=== PATIENT | male | born 1980 | race Caucasian/White ===

== ENCOUNTER 2018-09-07 20:25 | Inpatient (IN) | payer MEDICAID ==
--- NOTE | 2018-09-07 21:09 | C.PDOC ---
History Of Present Illness 37 y/o M c PMHx asthma, sleep apnea p/w leg edema and drowsiness x weeks. Mother at bedside speaking for patient who is constantly falling asleep. She reports patient had similar presentation at [facility] [place] ago and was intubated for it. She states while they were there, leg swelling improved but they never discovered cause of leg edema and is unsure if patient has heart condition. Were told he has sleep apnea but no CPAP at home. Full HPI/ROS unobtainable due to patient's condition. Time Seen by Provider: 09/07/18 20:43 Chief Complaint (Nursing): Shortness Of Breath Past Medical History Vital Signs: Last Vital Signs Temp 97.6 F 09/07/18 20:27 Pulse 109 H 09/07/18 20:27 Resp 23 09/07/18 20:50 BP 149/81 09/07/18 20:27 Pulse Ox 94 L 09/07/18 20:50 - Medical History PMH: Asthma, HTN, Kidney Stones Family History: States: No Known Family Hx - Social History Hx Tobacco Use: No Hx Alcohol Use: Yes Hx Substance Use: Yes (marijuana) - Immunization History Hx Tetanus Toxoid Vaccination: Yes Hx Influenza Vaccination: No Hx Pneumococcal Vaccination: No Review Of Systems Review Of Systems: ROS cannot be obtained secondary to pt's inabilty to answer questions. Physical Exam - Physical Exam Additional Physical Exam Comments: gen drowsy, falling asleep constantly head nc/at eyes perrl ent mmm neck supple chest no tenderness cv tachycardic lungs cta b/l abd soft, nt back no cva tenderness skin no rash neuro somnolent extremities bilateral pitting edema ED Course And Treatment - Laboratory Results Result Diagrams: 09/07/18 21:29 09/07/18 21:29 O2 Sat by Pulse Oximetry: 94 Medical Decision Making Medical Decision Making: CXR FINDINGS: LUNGS: The lungs are well inflated and clear. There is mild pulmonary venous congestion. PLEURA: No pleural effusions or pneumothorax. CARDIOVASCULAR: Moderate cardiomegaly and prominent central vasculature. No aortic atherosclerotic calcifications present. OSSEOUS STRUCTURES: Within normal limits for the patient's age. VISUALIZED UPPER ABDOMEN: Normal. OTHER FINDINGS: None. IMPRESSION: No active pulmonary disease. Trialed on BiPap, CO2 worsening, patient becoming more somnolent. Intubated by anesthesia, see their note. Dr. Casper accepts patient to his service. Accepted to ICU. Disposition - Disposition Disposition: HOSPITALIZED Disposition Time: 22:58 Condition: CRITICAL Forms: [facility] (Swiss) - Clinical Impression Clinical Impression: Hypercapnic respiratory failure
[2018-09-07 21:20] LABS: ABG ALLEN TEST POS; ARTERIAL BLOOD GAS HCO3 27.6 mmol/L (21-28); ARTERIAL BLOOD GAS HEMOGLOBIN 14.1 g/dL (11.7-17.4); ARTERIAL BLOOD GAS O2 SAT 77.1 % (95-98); ARTERIAL BLOOD GAS PCO2 67 mm/Hg (35-45); ARTERIAL BLOOD GAS PO2 44 mm/Hg (80-100); ARTERIAL BLOOD GAS TCO2 35.1 mmol/L (22-28)
[2018-09-07 21:34] LABS: BASO # 0.1 K/uL (0.0-0.2); BASO % 0.7 % (0.0-2.0); EOS # 0.3 K/uL (0.0-0.7); EOS % 2.3 % (0.0-4.0); HEMOGLOBIN 14.1 g/dL (12.0-18.0); LYMPH % 8.4 % (20.0-40.0); MEAN CELL VOLUME 86.1 fL (80.0-94.0); MEAN CORPUSCULAR HEMOGLOBIN 27.3 pg (27.0-31.0); MEAN CORPUSCULAR HGB CONC 31.8 g/dL (33.0-37.0); MEAN PLATELET VOLUME 7.4 fL (7.2-11.7); MONO # 1.2 K/uL (0.0-0.8); NEUT # 9.4 K/uL (1.8-7.0); NEUT % 78.6 % (50.0-75.0); NRBC % 0.1 % (0.0-2.0); PLATELET COUNT 219 K/uL (130-400); RBC 5.16 Mil/uL (4.40-5.90); RED CELL DISTRIBUTION WIDTH 15.9 % (11.5-14.5); WHITE BLOOD COUNT 11.9 K/uL (4.8-10.8)
[2018-09-07 21:47] LABS: ALB/GLOB RATIO 1.2 (1.0-2.1); ALBUMIN 3.9 g/dL (3.5-5.0); ALT/SGPT 16 U/L (21-72); AST/SGOT 20 U/L (17-59); BLOOD UREA NITROGEN 12 mg/dL (9-20); CALCIUM 8.8 mg/dl (8.6-10.4); GFR NON-AFRICAN AMERICAN > 60
[2018-09-07 21:59] LABS: B-TYPE NATRIURETIC PEPTIDE 44.2 pg/mL (0-450); CK-MB 1.52 ng/mL (0.0-3.38)
--- NOTE | 2018-09-07 22:14 | RAD ---
Date of service: 09/07/2018 HISTORY: leg edema, drowsy COMPARISON: No prior. FINDINGS: LUNGS: The lungs are well inflated and clear. There is mild pulmonary venous congestion. PLEURA: No pleural effusions or pneumothorax. CARDIOVASCULAR: Moderate cardiomegaly and prominent central vasculature. No aortic atherosclerotic calcifications present. OSSEOUS STRUCTURES: Within normal limits for the patient's age. VISUALIZED UPPER ABDOMEN: Normal. OTHER FINDINGS: None. IMPRESSION: No active pulmonary disease.
[2018-09-07 22:16] LABS: EOSINOPHIL 2 % (0-4); LYMPHOCYTE 9 % (20-40); MONOCYTE 11 % (0-10); NEUTROPHIL 78 % (50-75); PLATELET ESTIMATE NORMAL (NORMAL); TOTAL CELLS COUNTED 100
[2018-09-07 22:22] LABS: ABG ALLEN TEST POS; ARTERIAL BLOOD GAS HCO3 27.5 mmol/L (21-28); ARTERIAL BLOOD GAS HEMOGLOBIN 14.7 g/dL (11.7-17.4); ARTERIAL BLOOD GAS O2 SAT 98.2 % (95-98); ARTERIAL BLOOD GAS PCO2 95 mm/Hg (35-45); ARTERIAL BLOOD GAS PH 7.18 (7.35-7.45); ARTERIAL BLOOD GAS PO2 101 mm/Hg (80-100); ARTERIAL BLOOD GAS TCO2 38.4 mmol/L (22-28)
[2018-09-07] MEDS ORDERED: Succinylcholine Chloride 20 mg/ml Syr (5 ml) IV ONE ×2 (22:40)
[2018-09-07] MEDS ORDERED: Propranolol 1 mg/mL Inj IVP ONE (22:40)
[2018-09-07] MEDS ORDERED: Propofol 10 mg/ml 1,000 MG/100 ML VIAL ONE ×2 (22:41→23:51)
[2018-09-07] MEDS ORDERED: Sodium Chloride 0.9% 1,000 ML ONE (22:42)
[2018-09-07] MEDS: Propofol 10 mg/ml 1,000 MG/100 ML VIAL IV PRN (22:43)
[2018-09-07] MEDS ORDERED: Albuterol 0.083% Inhal Sol (2.5 mg/3 mL) UD INH STA (23:17)
[2018-09-07 23:37] LABS: URINE BILIRUBIN NEGATIVE (NEGATIVE); URINE BLOOD NEGATIVE (NEGATIVE); URINE CLARITY Clear (Clear); URINE COLOR Yellow (YELLOW); URINE GLUCOSE (UA) NORMAL (Normal); URINE LEUKOCYTE ESTERASE NEG Leu/uL (Negative); URINE PROTEIN NEGATIVE (NEGATIVE)
--- NOTE | 2018-09-07 23:44 | CP.PCM.CON ---
History of Present Illness - History of Present Illness History of Present Illness: Attending: Pennie Kahn MD PMD: Messi Carr MD Reason For Consult: Critical care management Chief Complaint: SOB/Somnolence/ worsening leg edema The patient was seen and examined in the ED, already intubated with his mother present HPI: The hx is obtained from the patient's mother and after review of the Radiological, laboratory and the medical records. This is a 37 years old male with hx of Kidney stones, Asthma, Sleep Apnea not on CPAP, and was admitted to the [facility] [place] one month ago for leg edema and Somnolence and was intubated. He now comes with over one week of Somnolence, SOB and worsening bilateral leg edema. In the ED the ABG showed pH 7.10/ PCO2 95/ PO2 101 and HCO3 of 27. The patient was placed on BIPAP . Because he started to Because his Oxygen saturation began to decrease instead of increasing , the patient was intubated in the ED. PMH: Asthma, HTN, Kidney Stones PSH: Denies SH: Former smoker; Uses Marijuana; Uses Alcohol; Live with family FH: States: No Known Family Hx Allergies: NKDA Shrimp, Walnuts Medication: reviewed Review of Systems - Review of Systems Systems not reviewed;Unavailable: Respiratory Distress, Intubated Review of Systems: Review of systems is limited because the paient is intubated and sedated. - Constitutional Constitutional: Daytime Sleepiness, Sleep Apnea. absent: Fever - EENT Ears: absent: Decreased Hearing Nose/Mouth/Throat: absent: Epistaxis - Cardiovascular Cardiovascular: Dyspnea, Edema - Respiratory Respiratory: Dyspnea, Wheezing - Hematologic/Lymphatic Hematologic: absent: Easy Bleeding, Easy Bruising Past Patient History - Past Medical History & Family History Past Medical History?: Yes - Past Social History Smoking Status: Former Smoker Chewing Tobacco Use: No Cigar Use: No Alcohol: Occasional Drugs: Cannabis, Inhalants Home Situation {Lives}: With Family - CARDIAC Hx Hypertension: Yes - PULMONARY Hx Asthma: Yes Hx Sleep Apnea: Yes - NEUROLOGICAL Hx Neurological Disorder: No - HEENT Hx HEENT Problems: No - RENAL Hx Kidney Stones: Yes - ENDOCRINE/METABOLIC Hx Endocrine Disorders: No - HEMATOLOGICAL/ONCOLOGICAL Hx Blood Disorders: No - INTEGUMENTARY Hx Dermatological Problems: No - MUSCULOSKELETAL/RHEUMATOLOGICAL Hx Musculoskeletal Disorders: No - GASTROINTESTINAL Hx Gastrointestinal Disorders: No - GENITOURINARY/GYNECOLOGICAL Hx Genitourinary Disorders: No - PSYCHIATRIC Hx Psychophysiologic Disorder: No Hx Substance Use: Yes (marijuana) - SURGICAL HISTORY Hx Surgeries: No - ANESTHESIA Hx Anesthesia: No Meds Allergies/Adverse Reactions: Allergies Allergy/AdvReac Type Severity Reaction Status Date / Time shrimp Allergy RASH Verified 09/07/18 20:37 walnuts Allergy RASH Uncoded 09/07/18 20:37 - Medications Medications: Current Medications Albuterol Sulfate (Albuterol 0.083% Inhal Grace (2.5 Mg/3 Ml) Ud) 2.5 mg INH RQ4 ANGELA Enoxaparin Sodium (Lovenox) 40 mg SC DAILY ANGELA Furosemide (Lasix) 40 mg IVP BID ANGELA Propofol (Diprivan) 1,000 mg in 100 mls @ 4.286 mls/hr IV .[id number] PRN; Protocol PRN Reason: TITRATE PER MD ORDER Methylprednisolone (Solu-Medrol) 40 mg IVP Q8H ANGELA Physical Exam - Constitutional Appears: In Acute Distress - Head Exam Head Exam: ATRAUMATIC, NORMAL INSPECTION, NORMOCEPHALIC - Eye Exam Eye Exam: Normal appearance Pupil Exam: NORMAL ACCOMODATION, PERRL - ENT Exam ENT Exam: Mucous Membranes Moist, Normal Exam - Neck Exam Neck exam: Positive for: Full Rom. Negative for: Lymphadenopathy, Meningismus - Respiratory Exam Additional comments: Inspiratory and expiratory wheezes - Cardiovascular Exam Cardiovascular Exam: REGULAR RHYTHM, RRR, +S1, +S2 - GI/Abdominal Exam Additional comments: Distended, tense, dull on percussion, Rebound tenderness cannot be explored as the patient is sedated. - Rectal Exam Rectal Exam: Deferred - Extremities Exam Additional comments: Bilateral firm, non pitting lef edema. - Back Exam Back exam: NORMAL INSPECTION - Neurological Exam Additional comments: Intubated, sedated. Prior to intubation there was no apparent focal weakness. - Psychiatric Exam Additional comments: Intubated and sedated - Skin Skin Exam: Intact, Normal Color, Warm Results - Vital Signs Recent Vital Signs: Last Vital Signs Temp 97.6 F 09/07/18 20:27 Pulse 104 H 09/07/18 23:15 Resp 24 09/07/18 23:15 BP 121/70 09/07/18 23:15 Pulse Ox 93 L 09/07/18 23:15 - Labs Result Diagrams: 09/08/18 02:33 09/08/18 02:33 Labs: Laboratory Results - last 24 hr 09/07/18 09/07/18 09/07/18 20:15 21:15 21:29 WBC 11.9 H RBC 5.16 Hgb 14.1 Hct 44.4 MCV 86.1 MCH 27.3 MCHC 31.8 L RDW 15.9 H Plt Count 219 MPV 7.4 Neut % (Auto) 78.6 H Lymph % (Auto) 8.4 L Valley % (Auto) 10.0 Eos % (Auto) 2.3 Baso % (Auto) 0.7 Neut # (Auto) 9.4 H Lymph # (Auto) 1.0 Valley # (Auto) 1.2 H Eos # (Auto) 0.3 Baso # (Auto) 0.1 Neutrophils % (Manual) 78 H Lymphocytes % (Manual) 9 L Monocytes % (Manual) 11 H Eosinophils % (Manual) 2 Platelet Estimate Normal Puncture Site Rra Rra pCO2 95 H* 67 H pO2 101 H 44 L* HCO3 27.5 27.6 ABG pH 7.18 L* 7.30 L ABG Total CO2 38.4 H 35.1 H ABG O2 Saturation 98.2 H 77.1 L ABG Base Excess 3.5 H 4.3 H ABG Hemoglobin 14.7 14.1 ABG Carboxyhemoglobin 3.5 H 3.6 H POC ABG HHb (Measured) 1.7 21.8 H ABG Methemoglobin 1.2 1.3 Edward Test Pos Pos A-a O2 Difference 137.0 86.0 Respiratory Index 1.4 2.0 Hgb O2 Saturation 93.6 L 73.3 L Liter Flow 2.5 Vent Mode Bipap FiO2 50.0 30.0 Inspiratory BiPAP 20 Expiratory BiPAP 10 Crit Value Called To Felecia hawkins Crit Value Called By Thomas franklin market maker Keith sanidad Crit Value Read Back Y Y Blood Gas Notified Time 2221 2118 Sodium Potassium Chloride Carbon Dioxide Anion Gap BUN Creatinine Est GFR ( Amer) Est GFR (Non-Af Amer) Random Glucose Calcium Phosphorus Magnesium Total Bilirubin AST ALT Alkaline Phosphatase Total Creatine Kinase CK-MB (Mass) Troponin I NT-Pro-B Natriuret Pep Total Protein Albumin Globulin Albumin/Globulin Ratio Urine Color Urine Clarity Urine pH Ur Specific Fate Urine Protein Urine Glucose (UA) Urine Ketones Urine Blood Urine Nitrate Urine Bilirubin Urine Urobilinogen Ur Leukocyte Esterase Urine WBC (Auto) Urine RBC (Auto) 09/07/18 09/07/18 21:29 23:29 WBC RBC Hgb Hct MCV MCH MCHC RDW Plt Count MPV Neut % (Auto) Lymph % (Auto) Valley % (Auto) Eos % (Auto) Baso % (Auto) Neut # (Auto) Lymph # (Auto) Valley # (Auto) Eos # (Auto) Baso # (Auto) Neutrophils % (Manual) Lymphocytes % (Manual) Monocytes % (Manual) Eosinophils % (Manual) Platelet Estimate Puncture Site pCO2 pO2 HCO3 ABG pH ABG Total CO2 ABG O2 Saturation ABG Base Excess ABG Hemoglobin ABG Carboxyhemoglobin POC ABG HHb (Measured) ABG Methemoglobin Edward Test A-a O2 Difference Respiratory Index Hgb O2 Saturation Liter Flow Vent Mode FiO2 Inspiratory BiPAP Expiratory BiPAP Crit Value Called To Crit Value Called By Crit Value Read Back Blood Gas Notified Time Sodium 139 Potassium 4.0 Chloride 101 Carbon Dioxide 33 H Anion Gap 9 L BUN 12 Creatinine 0.8 Est GFR ( Amer) > 60 Est GFR (Non-Af Amer) > 60 Random Glucose 134 H D Calcium 8.8 Phosphorus 3.4 Magnesium 2.0 Total Bilirubin 0.3 AST 20 ALT 16 L D Alkaline Phosphatase 66 Total Creatine Kinase 129 CK-MB (Mass) 1.52 Troponin I < 0.0120 NT-Pro-B Natriuret Pep 44.2 Total Protein 7.1 Albumin 3.9 Globulin 3.2 Albumin/Globulin Ratio 1.2 Urine Color Yellow Urine Clarity Clear Urine pH 5.0 Ur Specific Fate 1.027 Urine Protein Negative Urine Glucose (UA) Normal Urine Ketones Negative Urine Blood Negative Urine Nitrate Negative Urine Bilirubin Negative Urine Urobilinogen 2.0 Ur Leukocyte Esterase Neg Urine WBC (Auto) 2 Urine RBC (Auto) 1 - Impressions Impression: NSR 98/min. No sign of ischemia - Imaging and Cardiology Chest x-ray Status: Image reviewed by me Additional comment: Initial Chest X Ray: Poor inspiration with Bibasal haziness Post Intubation Chest X Ray: ET tube above juan luis Bilateral interstitial infiltrate Assessment & Plan - Assessment and Plan (Free Text) Assessment: #. Hypercapnic, Hypoxic respiratory failure #. Sleep apnea #. Bilateral leg edema Plan: 37 years old male with hx of Kidney stones, Asthma, Sleep Apnea not on CPAP, comes with over one week of Somnolence, SOB and worsening bilateral leg edema. In the ED the ABG showed pH 7.10/ PCO2 95/ PO2 101 and HCO3 of 27. He was intubated in the ED. #. Hypercapnic, Hypoxic respiratory failure caused by Asthma, Sleep apnea and most likely a flash pulmonary edema. - The patient was intubated in ED with vent settings AC 20; Tidal Volume 500; PEEP of 10 and FiO2 of 100% - Lasix total of 80mg IV given and continue with lasix 40mg IV Q12 - Methyl prednisolone - Albuterol - Serial Troponin to r/o ACS - Serial EKG - Follow official X Ray Interpretation - Follow Urine drug screen - Blood culture because of the leukocytosis #. Sleep apnea - On extubation , the patient will have to be on CPAP at nights #. Bilateral leg edema with normal renal function and urinalysis. The Pro BNP is normal. This is a patient with Asthma, Sleep Apnea, Probably pulmonary hypertension and right heart failure. The patient will be given lasix and an ECHO cardiogram will be ordered to evaluate for cardiac failure and pulmonary pressure. - Follow D Dimer - Follow Duplex US of lower extremities #. DVT Prophylaxis with SCD and Lovenox #. Code Status: Full James Lombardi MD - - Date & Time Date: 09/07/18 Time: 23:44
[2018-09-07] MEDS ORDERED: Albuterol 0.083% Inhal Sol (2.5 mg/3 mL) UD ONE (23:46)
[2018-09-08] MEDS ORDERED: Albuterol 0.083% Inhal Sol (2.5 mg/3 mL) UD ONE (00:10)
[2018-09-08 00:49] LABS: ABG ALLEN TEST POS; ARTERIAL BLOOD GAS HCO3 27.2 mmol/L (21-28); ARTERIAL BLOOD GAS HEMOGLOBIN 13.7 g/dL (11.7-17.4); ARTERIAL BLOOD GAS O2 SAT 96.2 % (95-98); ARTERIAL BLOOD GAS PCO2 58 mm/Hg (35-45); ARTERIAL BLOOD GAS PH 7.33 (7.35-7.45); ARTERIAL BLOOD GAS PO2 66 mm/Hg (80-100); ARTERIAL BLOOD GAS TCO2 32.4 mmol/L (22-28)
[2018-09-08 01:04] LABS: INR 1.2; PROTHROMBIN TIME 12.8 SECONDS (9.7-12.2)
[2018-09-08 01:32] LABS: BARBITURATES, UR NEGATIVE (NEGATIVE); BENZODIAZEPINES, UR NEGATIVE (NEGATIVE); OPIATES, UR NEGATIVE (NEGATIVE); PHENCYCLIDINE, UR NEGATIVE (NEGATIVE)
[2018-09-08] MEDS: Propofol 10 mg/ml 1,000 MG/100 ML VIAL IV PRN ×8 (02:00→22:20)
[2018-09-08 02:38] LABS: BASO # 0.1 K/uL (0.0-0.2); BASO % 0.6 % (0.0-2.0); EOS # 0.1 K/uL (0.0-0.7); EOS % 0.6 % (0.0-4.0); HEMOGLOBIN 14.4 g/dL (12.0-18.0); LYMPH # 0.4 K/uL (1.0-4.3); LYMPH % 3.7 % (20.0-40.0); MEAN CELL VOLUME 86.4 fL (80.0-94.0); MEAN CORPUSCULAR HEMOGLOBIN 27.9 pg (27.0-31.0); MEAN CORPUSCULAR HGB CONC 32.3 g/dL (33.0-37.0); MEAN PLATELET VOLUME 7.7 fL (7.2-11.7); MONO # 0.3 K/uL (0.0-0.8); MONO % 2.3 % (0.0-10.0); NEUT % 92.8 % (50.0-75.0); PLATELET COUNT 224 K/uL (130-400); RBC 5.15 Mil/uL (4.40-5.90); RED CELL DISTRIBUTION WIDTH 15.6 % (11.5-14.5); WHITE BLOOD COUNT 11.9 K/uL (4.8-10.8)
[2018-09-08 02:48] LABS: BLOOD UREA NITROGEN 14 mg/dL (9-20); CALCIUM 8.6 mg/dl (8.6-10.4); GFR NON-AFRICAN AMERICAN > 60
[2018-09-08 03:15] LABS: BANDS 1 % (0-2); BASOPHIL 1 % (0-2); LYMPHOCYTE 3 % (20-40); MONOCYTE 3 % (0-10); NEUTROPHIL 92 % (50-75); PLATELET ESTIMATE NORMAL (NORMAL); TOTAL CELLS COUNTED 100
[2018-09-08] MEDS: Albuterol 0.083% Inhal Sol (2.5 mg/3 mL) UD INH SCH ×2 (04:03→07:45)
[2018-09-08] MEDS ORDERED: MethylPREDNISolone 40 mg Vial IVP SCH (06:00)
[2018-09-08 06:03] LABS: ABG ALLEN TEST POS; ARTERIAL BLOOD GAS HCO3 28.4 mmol/L (21-28); ARTERIAL BLOOD GAS HEMOGLOBIN 14.9 g/dL (11.7-17.4); ARTERIAL BLOOD GAS O2 SAT 95.3 % (95-98); ARTERIAL BLOOD GAS PCO2 51 mm/Hg (35-45); ARTERIAL BLOOD GAS PH 7.39 (7.35-7.45); ARTERIAL BLOOD GAS PO2 64 mm/Hg (80-100); ARTERIAL BLOOD GAS TCO2 32.5 mmol/L (22-28)
[2018-09-08 06:26] LABS: URINE BILIRUBIN NEGATIVE (NEGATIVE); URINE BLOOD NEGATIVE (NEGATIVE); URINE CLARITY Clear (Clear); URINE COLOR Straw (YELLOW); URINE GLUCOSE (UA) NORMAL (Normal); URINE LEUKOCYTE ESTERASE NEG Leu/uL (Negative); URINE PROTEIN NEGATIVE (NEGATIVE); URINE UROBILINOGEN NORMAL mg/dL (0.2-1.0)
--- NOTE | 2018-09-08 07:52 | PCM.ANES ---
Anesthesia Emergent Intubation - Diagnosis Working Diagnosis:: respiratory failure, asthma, ELLEN Level Of Consciousness: Drowsy, Restless Intubation Meds Given: Propofol (100), Succinylcholine (160) - Airway Management Oropharyngeal Area Suctioned: Yes Rapid Sequence: Yes - Method of Intubation Intubation Method: Oral ETT (8) Lipline@: 24 Easy: Yes Atramatic: Yes - Intubation Devices Reardan Scope Used: Yes (4) - Placement Confirmation Breath Sounds Present & Equal Bilaterally: Yes Gurgling Sounds Not Audible at Epigastrum: Yes Positive EtCO2: Yes Portable CXR: Yes Recommendations: Ventilator, Chest X Ray, ABG
[2018-09-08] MEDS ORDERED: DiphenhydrAMINE 50 mg/ml Inj IVP ONE (08:00)
[2018-09-08] MEDS ORDERED: Iodixanol 320 MG/ML 100 ML BOTTLE IV ONE (09:40)
--- NOTE | 2018-09-08 09:51 | RAD ---
Date of service: 09/07/2018 PROCEDURE: CHEST RADIOGRAPH, 1 VIEW HISTORY: s/p Intubation COMPARISON: 09/07/2018 at 9:59 p.m. FINDINGS: Endotracheal tube terminates 6 mm proximal to the juan luis. LUNGS: The lungs are well inflated. There is mild pulmonary venous congestion. Multifocal linear atelectasis in the lungs. PLEURA: No pneumothorax or pleural effusion. CARDIOVASCULAR: Moderate cardiomegaly and prominent central vasculature. No aortic atherosclerotic calcifications present. OSSEOUS STRUCTURES: Within normal limits for the patient's age. VISUALIZED UPPER ABDOMEN: Normal. OTHER FINDINGS: None. IMPRESSION: 1. Endotracheal tube is low in position and terminates 9 mm proximal to the juan luis. 2. Moderate cardiomegaly and mild pulmonary venous congestion. Multifocal linear atelectasis in the lungs.
[2018-09-08] MEDS ORDERED: Enoxaparin 30 mg Syringe SC SCH (10:00)
--- NOTE | 2018-09-08 10:01 | RAD ---
Date of service: 09/08/2018 HISTORY: Follow up Chest congestion COMPARISON: 09/07/2018. FINDINGS: Endotracheal tube terminates 3 cm proximal to the juan luis. The nasogastric tube terminates in the stomach. LUNGS: There are low lung volumes. Again seen is mild pulmonary venous congestion. There is multifocal linear atelectasis in the lungs. PLEURA: No pleural effusions or pneumothorax. CARDIOVASCULAR: Persistent moderate cardiomegaly with prominent central vasculature. No aortic atherosclerotic calcifications present. OSSEOUS STRUCTURES: Within normal limits for the patient's age. VISUALIZED UPPER ABDOMEN: Normal. OTHER FINDINGS: None. IMPRESSION: Endotracheal tube terminates 3 cm proximal to the juan luis. Nasogastric tube terminates in the stomach. Little interval change in pulmonary venous congestion and multifocal linear atelectasis in the lungs. Persistent moderate cardiomegaly with prominent central vasculature.
--- NOTE | 2018-09-08 10:17 | CT ---
Date of service: 09/08/2018 PROCEDURE: CT Chest with contrast (Pulmonary Angiogram) HISTORY: Hypoxemia/ Elevated D Dimer COMPARISON: None available. TECHNIQUE: Axial computed tomography images were obtained of the chest in the pulmonary arterial phase of enhancement. Coronal and sagittal reformatted images were created and reviewed. Intravenous contrast dose: 100 mL Visipaque Radiation dose: Total exam DLP = 516.32 mGy-cm. This CT exam was performed using one or more of the following dose reduction techniques: Automated exposure control, adjustment of the mA and/or kV according to patient size, and/or use of iterative reconstruction technique. FINDINGS: Endotracheal tube terminates 2.0 cm proximal to the juan luis. The nasogastric tube terminates in the stomach. PULMONARY ARTERIES: There are no filling defects in the pulmonary arteries to suggest acute pulmonary embolism. AORTA: No acute findings. No thoracic aortic aneurysm. No aortic atherosclerotic calcification or mural plaque present. LUNGS: The lungs are well inflated. There is confluent airspace disease in both lower lobes. There is subsegmental atelectasis in the upper lobes. PLEURAL SPACES: No effusion or pneumothorax. HEART: No cardiomegaly. No significant pericardial effusion. LYMPH NODES: No pathologic mediastinal or hilar lymphadenopathy. BONES, CHEST WALL: Within normal limits for the patient's age. No fracture or destructive lesion OTHER FINDINGS: None. IMPRESSION: No CTA evidence for acute pulmonary embolism. Confluent airspace disease in both lower lobes which may represent atelectasis/pneumonia, aspiration pneumonitis is a consideration. Clinical follow-up is advised. Endotracheal tube terminates 2 cm proximal to the juan luis. The nasogastric tube terminates in the stomach.
[2018-09-08] MEDS ORDERED: Budesonide 0.5 mg/2 ml Inhal Susp UD INH STA (11:43)
[2018-09-08] MEDS: Albuterol-Ipratrop 3 mg / 0.5 (3 ml) UD INH SCH ×3 (11:47→20:12)
[2018-09-08] MEDS: Enoxaparin 40 mg Syringe SC SCH (13:10)
[2018-09-08 14:08] LABS: ABG ALLEN TEST POS; ARTERIAL BLOOD GAS HCO3 27.9 mmol/L (21-28); ARTERIAL BLOOD GAS HEMOGLOBIN 14.6 g/dL (11.7-17.4); ARTERIAL BLOOD GAS O2 SAT 98.9 % (95-98); ARTERIAL BLOOD GAS PCO2 48 mm/Hg (35-45); ARTERIAL BLOOD GAS PO2 86 mm/Hg (80-100); ARTERIAL BLOOD GAS TCO2 31.2 mmol/L (22-28)
--- NOTE | 2018-09-08 14:52 | CP.CCUPN ---
CCU Subjective - Physician Review Events Since Last Encounter (Free Text): 09/08/18 14:45 intubated and sedated. CCU Objective - Vital Signs / Intake & Output Vital Signs (Last 4 hours): Vital Signs Temp Pulse Resp BP Pulse Ox 09/08/18 14:00 110 H 20 143/73 97 09/08/18 13:00 106 H 20 145/88 98 09/08/18 12:00 98.1 F 106 H 20 132/73 95 09/08/18 11:00 100 H 20 120/59 L 94 L Intake and Output (Last 8hrs): Intake & Output 09/07/18 09/08/18 09/08/18 22:59 06:59 14:59 Intake Total 464.8 658.1 Output Total 2100 1665 Balance -1635.2 -1006.9 Weight 315 lb 313 lb 15.012 oz Intake: IV 200 325 Intake, IV Amount 264.8 333.1 Left Hand 264.8 333.1 Output: Urine 2100 1665 Urethral (Agustin) 1000 1665 - Physical Exam Head: Positive for: Atraumatic, Normocephalic Pupils: Positive for: PERRL Mouth: Positive for: Moist Mucous Membranes Respiratory/Chest: Positive for: Rales Cardiovascular: Positive for: Normal S1, S2, Tachycardic Abdomen: Positive for: Distention, Normal Bowel Sounds. Negative for: Tenderness Upper Extremity: Positive for: Normal Inspection Lower Extremity: Positive for: Edema - Medications Active Medications: Active Medications Generic Name Dose Route Start Last Admin Trade Name Freq PRN Reason Stop Dose Admin Albuterol/Ipratropium 3 ml 09/08/18 12:00 09/08/18 11:47 Duoneb 3 Mg/0.5 Mg (3 Ml) Ud INH 3 ml RQ4 ANGELA Administration Budesonide 0.5 mg 09/08/18 20:00 Pulmicort Respules INH RQ12 ANGELA Enoxaparin Sodium 40 mg 09/08/18 12:15 09/08/18 13:10 Lovenox SC 40 mg DAILY ANGELA Administration Furosemide 40 mg 09/08/18 09:00 09/08/18 09:45 Lasix IVP 40 mg Q12H ANGELA Administration Propofol 1,000 mg in 100 mls @ 4.286 mls/hr 09/07/18 23:30 09/08/18 12:21 Diprivan IV 40 mcg/kg/min .[id number] PRN 34.292 mls/hr TITRATE PER MD ORDER Titration Protocol 5 MCG/KG/MIN Lorazepam 1 mg 09/08/18 00:42 09/08/18 13:54 Ativan IVP 1 mg Q4H PRN Administration Agitation - Patient Studies Lab Studies: Lab Studies 09/08/18 09/08/18 09/08/18 Range/Units 14:04 10:03 06:20 WBC (4.8-10.8) K/uL RBC (4.40-5.90) Mil/uL Hgb (12.0-18.0) g/dL Hct (35.0-51.0) % MCV (80.0-94.0) fL MCH (27.0-31.0) pg MCHC (33.0-37.0) g/dL RDW (11.5-14.5) % Plt Count (130-400) K/uL MPV (7.2-11.7) fL Neut % (Auto) (50.0-75.0) % Lymph % (Auto) (20.0-40.0) % [place] % (Auto) (0.0-10.0) % Eos % (Auto) (0.0-4.0) % Baso % (Auto) (0.0-2.0) % Neut # (Auto) (1.8-7.0) K/uL Lymph # (Auto) (1.0-4.3) K/uL [place] # (Auto) (0.0-0.8) K/uL Eos # (Auto) (0.0-0.7) K/uL Baso # (Auto) (0.0-0.2) K/uL Neutrophils % (Manual) (50-75) % Band Neutrophils % (0-2) % Lymphocytes % (Manual) (20-40) % Monocytes % (Manual) (0-10) % Eosinophils % (Manual) (0-4) % Basophils % (Manual) (0-2) % Platelet Estimate (NORMAL) PT (9.7-12.2) SECONDS INR APTT (21-34) SECONDS D-Dimer, Quantitative (0-243) ng/mlDDU Puncture Site R/rad pCO2 48 H (35-45) mm/Hg pO2 86 (80-100) mm/Hg HCO3 27.9 (21-28) mmol/L ABG pH 7.40 (7.35-7.45) ABG Total CO2 31.2 H (22-28) mmol/L ABG O2 Saturation 98.9 H (95-98) % ABG Base Excess 3.9 H (-2.0-3.0) mmol/L ABG Hemoglobin 14.6 (11.7-17.4) g/dL ABG Carboxyhemoglobin 1.5 (0.5-1.5) % POC ABG HHb (Measured) 1.1 (0.0-5.0) % ABG Methemoglobin 1.0 (0.0-3.0) % Edward Test Pos A-a O2 Difference 567.0 mm/Hg Respiratory Index 6.6 Hgb O2 Saturation 96.4 (95.0-98.0) % Liter Flow Vent Mode Mechanical Rate 20 FiO2 100.0 % Tidal Volume 500 PEEP 10 Inspiratory BiPAP Expiratory BiPAP Crit Value Called To Crit Value Called By Crit Value Read Back Blood Gas Notified Time Sodium (132-148) mmol/L Potassium (3.6-5.2) mmol/L Chloride (98-107) mmol/L Carbon Dioxide (22-30) mmol/L Anion Gap (10-20) BUN (9-20) mg/dL Creatinine (0.8-1.5) mg/dL Est GFR ( Amer) Est GFR (Non-Af Amer) Random Glucose (75-110) mg/dL Calcium (8.6-10.4) mg/dl Phosphorus (2.5-4.5) mg/dL Magnesium (1.6-2.3) mg/dL Total Bilirubin (0.2-1.3) mg/dL AST (17-59) U/L ALT (21-72) U/L Alkaline Phosphatase (38-126) U/L Total Creatine Kinase (55-170) U/L CK-MB (Mass) (0.0-3.38) ng/mL Troponin I < 0.0120 (0.00-0.120) ng/mL NT-Pro-B Natriuret Pep (0-450) pg/mL Total Protein (6.3-8.3) g/dL Albumin (3.5-5.0) g/dL Globulin (2.2-3.9) gm/dL Albumin/Globulin Ratio (1.0-2.1) Urine Color Straw (YELLOW) Urine Clarity Clear (Clear) Urine pH 5.0 (5.0-8.0) Ur Specific Hume 1.006 (1.003-1.030) Urine Protein Negative (NEGATIVE) mg/dL Urine Glucose (UA) Normal (Normal) mg/dL Urine Ketones Negative (NEGATIVE) mg/dL Urine Blood Negative (NEGATIVE) Urine Nitrate Negative (NEGATIVE) Urine Bilirubin Negative (NEGATIVE) Urine Urobilinogen Normal (0.2-1.0) mg/dL Ur Leukocyte Esterase Neg (Negative) Salvatore/uL Urine WBC (Auto) 1 (0-5) /hpf Urine RBC (Auto) 1 (0-3) /hpf Hyaline Casts 3-5 H (0-2) /lpf Urine Opiates Screen (NEGATIVE) Urine Methadone Screen (NEGATIVE) Ur Barbiturates Screen (NEGATIVE) Ur Phencyclidine Scrn (NEGATIVE) Ur Amphetamines Screen (NEGATIVE) U Benzodiazepines Scrn (NEGATIVE) U Oth Cocaine Metabols (NEGATIVE) U Cannabinoids Screen (NEGATIVE) 09/08/18 09/08/18 09/08/18 Range/Units 05:30 02:33 02:33 WBC 11.9 H (4.8-10.8) K/uL RBC 5.15 (4.40-5.90) Mil/uL Hgb 14.4 (12.0-18.0) g/dL Hct 44.5 (35.0-51.0) % MCV 86.4 (80.0-94.0) fL MCH 27.9 (27.0-31.0) pg MCHC 32.3 L (33.0-37.0) g/dL RDW 15.6 H (11.5-14.5) % Plt Count 224 (130-400) K/uL MPV 7.7 (7.2-11.7) fL Neut % (Auto) 92.8 H (50.0-75.0) % Lymph % (Auto) 3.7 L (20.0-40.0) % [place] % (Auto) 2.3 (0.0-10.0) % Eos % (Auto) 0.6 (0.0-4.0) % Baso % (Auto) 0.6 (0.0-2.0) % Neut # (Auto) 11.0 H (1.8-7.0) K/uL Lymph # (Auto) 0.4 L (1.0-4.3) K/uL [place] # (Auto) 0.3 (0.0-0.8) K/uL Eos # (Auto) 0.1 (0.0-0.7) K/uL Baso # (Auto) 0.1 (0.0-0.2) K/uL Neutrophils % (Manual) 92 H (50-75) % Band Neutrophils % 1 (0-2) % Lymphocytes % (Manual) 3 L (20-40) % Monocytes % (Manual) 3 (0-10) % Eosinophils % (Manual) (0-4) % Basophils % (Manual) 1 (0-2) % Platelet Estimate Normal (NORMAL) PT (9.7-12.2) SECONDS INR APTT (21-34) SECONDS D-Dimer, Quantitative 466 H (0-243) ng/mlDDU Puncture Site Rr pCO2 51 H (35-45) mm/Hg pO2 64 L (80-100) mm/Hg HCO3 28.4 H (21-28) mmol/L ABG pH 7.39 (7.35-7.45) ABG Total CO2 32.5 H (22-28) mmol/L ABG O2 Saturation 95.3 (95-98) % ABG Base Excess 4.6 H (-2.0-3.0) mmol/L ABG Hemoglobin 14.9 (11.7-17.4) g/dL ABG Carboxyhemoglobin 1.8 H (0.5-1.5) % POC ABG HHb (Measured) 4.6 (0.0-5.0) % ABG Methemoglobin 0.8 (0.0-3.0) % Edward Test Pos A-a O2 Difference 585.0 mm/Hg Respiratory Index 9.1 Hgb O2 Saturation 92.8 L (95.0-98.0) % Liter Flow Vent Mode Prvc Mechanical Rate 20 FiO2 100.0 % Tidal Volume 500 PEEP 10 Inspiratory BiPAP Expiratory BiPAP Crit Value Called To Crit Value Called By Crit Value Read Back Blood Gas Notified Time Sodium (132-148) mmol/L Potassium (3.6-5.2) mmol/L Chloride (98-107) mmol/L Carbon Dioxide (22-30) mmol/L Anion Gap (10-20) BUN (9-20) mg/dL Creatinine (0.8-1.5) mg/dL Est GFR ( Amer) Est GFR (Non-Af Amer) Random Glucose (75-110) mg/dL Calcium (8.6-10.4) mg/dl Phosphorus (2.5-4.5) mg/dL Magnesium (1.6-2.3) mg/dL Total Bilirubin (0.2-1.3) mg/dL AST (17-59) U/L ALT (21-72) U/L Alkaline Phosphatase (38-126) U/L Total Creatine Kinase (55-170) U/L CK-MB (Mass) (0.0-3.38) ng/mL Troponin I (0.00-0.120) ng/mL NT-Pro-B Natriuret Pep (0-450) pg/mL Total Protein (6.3-8.3) g/dL Albumin (3.5-5.0) g/dL Globulin (2.2-3.9) gm/dL Albumin/Globulin Ratio (1.0-2.1) Urine Color (YELLOW) Urine Clarity (Clear) Urine pH (5.0-8.0) Ur Specific [place] (1.003-1.030) Urine Protein (NEGATIVE) mg/dL Urine Glucose (UA) (Normal) mg/dL Urine Ketones (NEGATIVE) mg/dL Urine Blood (NEGATIVE) Urine Nitrate (NEGATIVE) Urine Bilirubin (NEGATIVE) Urine Urobilinogen (0.2-1.0) mg/dL Ur Leukocyte Esterase (Negative) Salvatore/uL Urine WBC (Auto) (0-5) /hpf Urine RBC (Auto) (0-3) /hpf Hyaline Casts (0-2) /lpf Urine Opiates Screen (NEGATIVE) Urine Methadone Screen (NEGATIVE) Ur Barbiturates Screen (NEGATIVE) Ur Phencyclidine Scrn (NEGATIVE) Ur Amphetamines Screen (NEGATIVE) U Benzodiazepines Scrn (NEGATIVE) U Oth Cocaine Metabols (NEGATIVE) U Cannabinoids Screen (NEGATIVE) 09/08/18 09/08/18 09/08/18 Range/Units 02:33 00:59 00:54 WBC (4.8-10.8) K/uL RBC (4.40-5.90) Mil/uL Hgb (12.0-18.0) g/dL Hct (35.0-51.0) % MCV (80.0-94.0) fL MCH (27.0-31.0) pg MCHC (33.0-37.0) g/dL RDW (11.5-14.5) % Plt Count (130-400) K/uL MPV (7.2-11.7) fL Neut % (Auto) (50.0-75.0) % Lymph % (Auto) (20.0-40.0) % [place] % (Auto) (0.0-10.0) % Eos % (Auto) (0.0-4.0) % Baso % (Auto) (0.0-2.0) % Neut # (Auto) (1.8-7.0) K/uL Lymph # (Auto) (1.0-4.3) K/uL [place] # (Auto) (0.0-0.8) K/uL Eos # (Auto) (0.0-0.7) K/uL Baso # (Auto) (0.0-0.2) K/uL Neutrophils % (Manual) (50-75) % Band Neutrophils % (0-2) % Lymphocytes % (Manual) (20-40) % Monocytes % (Manual) (0-10) % Eosinophils % (Manual) (0-4) % Basophils % (Manual) (0-2) % Platelet Estimate (NORMAL) PT 12.8 H (9.7-12.2) SECONDS INR 1.2 APTT 34 (21-34) SECONDS D-Dimer, Quantitative (0-243) ng/mlDDU Puncture Site pCO2 (35-45) mm/Hg pO2 (80-100) mm/Hg HCO3 (21-28) mmol/L ABG pH (7.35-7.45) ABG Total CO2 (22-28) mmol/L ABG O2 Saturation (95-98) % ABG Base Excess (-2.0-3.0) mmol/L ABG Hemoglobin (11.7-17.4) g/dL ABG Carboxyhemoglobin (0.5-1.5) % POC ABG HHb (Measured) (0.0-5.0) % ABG Methemoglobin (0.0-3.0) % Edward Test A-a O2 Difference mm/Hg Respiratory Index Hgb O2 Saturation (95.0-98.0) % Liter Flow Vent Mode Mechanical Rate FiO2 % Tidal Volume PEEP Inspiratory BiPAP Expiratory BiPAP Crit Value Called To Crit Value Called By Crit Value Read Back Blood Gas Notified Time Sodium 137 (132-148) mmol/L Potassium 4.3 (3.6-5.2) mmol/L Chloride 100 (98-107) mmol/L Carbon Dioxide 31 H (22-30) mmol/L Anion Gap 11 (10-20) BUN 14 (9-20) mg/dL Creatinine 0.8 (0.8-1.5) mg/dL Est GFR ( Amer) > 60 Est GFR (Non-Af Amer) > 60 Random Glucose 125 H (75-110) mg/dL Calcium 8.6 (8.6-10.4) mg/dl Phosphorus (2.5-4.5) mg/dL Magnesium (1.6-2.3) mg/dL Total Bilirubin (0.2-1.3) mg/dL AST (17-59) U/L ALT (21-72) U/L Alkaline Phosphatase (38-126) U/L Total Creatine Kinase (55-170) U/L CK-MB (Mass) (0.0-3.38) ng/mL Troponin I < 0.0120 (0.00-0.120) ng/mL NT-Pro-B Natriuret Pep (0-450) pg/mL Total Protein (6.3-8.3) g/dL Albumin (3.5-5.0) g/dL Globulin (2.2-3.9) gm/dL Albumin/Globulin Ratio (1.0-2.1) Urine Color (YELLOW) Urine Clarity (Clear) Urine pH (5.0-8.0) Ur Specific [place] (1.003-1.030) Urine Protein (NEGATIVE) mg/dL Urine Glucose (UA) (Normal) mg/dL Urine Ketones (NEGATIVE) mg/dL Urine Blood (NEGATIVE) Urine Nitrate (NEGATIVE) Urine Bilirubin (NEGATIVE) Urine Urobilinogen (0.2-1.0) mg/dL Ur Leukocyte Esterase (Negative) Salvatore/uL Urine WBC (Auto) (0-5) /hpf Urine RBC (Auto) (0-3) /hpf Hyaline Casts (0-2) /lpf Urine Opiates Screen Negative (NEGATIVE) Urine Methadone Screen Negative (NEGATIVE) Ur Barbiturates Screen Negative (NEGATIVE) Ur Phencyclidine Scrn Negative (NEGATIVE) Ur Amphetamines Screen Negative (NEGATIVE) U Benzodiazepines Scrn Negative (NEGATIVE) U Oth Cocaine Metabols Negative (NEGATIVE) U Cannabinoids Screen Positive H (NEGATIVE) 09/08/18 09/07/18 09/07/18 Range/Units 00:32 23:29 21:29 WBC (4.8-10.8) K/uL RBC (4.40-5.90) Mil/uL Hgb (12.0-18.0) g/dL Hct (35.0-51.0) % MCV (80.0-94.0) fL MCH (27.0-31.0) pg MCHC (33.0-37.0) g/dL RDW (11.5-14.5) % Plt Count (130-400) K/uL MPV (7.2-11.7) fL Neut % (Auto) (50.0-75.0) % Lymph % (Auto) (20.0-40.0) % [place] % (Auto) (0.0-10.0) % Eos % (Auto) (0.0-4.0) % Baso % (Auto) (0.0-2.0) % Neut # (Auto) (1.8-7.0) K/uL Lymph # (Auto) (1.0-4.3) K/uL [place] # (Auto) (0.0-0.8) K/uL Eos # (Auto) (0.0-0.7) K/uL Baso # (Auto) (0.0-0.2) K/uL Neutrophils % (Manual) (50-75) % Band Neutrophils % (0-2) % Lymphocytes % (Manual) (20-40) % Monocytes % (Manual) (0-10) % Eosinophils % (Manual) (0-4) % Basophils % (Manual) (0-2) % Platelet Estimate (NORMAL) PT (9.7-12.2) SECONDS INR APTT (21-34) SECONDS D-Dimer, Quantitative (0-243) ng/mlDDU Puncture Site Rr pCO2 58 H (35-45) mm/Hg pO2 66 L (80-100) mm/Hg HCO3 27.2 (21-28) mmol/L ABG pH 7.33 L (7.35-7.45) ABG Total CO2 32.4 H (22-28) mmol/L ABG O2 Saturation 96.2 (95-98) % ABG Base Excess 3.1 H (-2.0-3.0) mmol/L ABG Hemoglobin 13.7 (11.7-17.4) g/dL ABG Carboxyhemoglobin 2.8 H (0.5-1.5) % POC ABG HHb (Measured) 3.7 (0.0-5.0) % ABG Methemoglobin 0.8 (0.0-3.0) % Edward Test Pos A-a O2 Difference 575.0 mm/Hg Respiratory Index 8.7 Hgb O2 Saturation 92.6 L (95.0-98.0) % Liter Flow Vent Mode Prvc Mechanical Rate 20 FiO2 100.0 % Tidal Volume 500 PEEP 5 Inspiratory BiPAP Expiratory BiPAP Crit Value Called To Crit Value Called By Crit Value Read Back Blood Gas Notified Time Sodium 139 (132-148) mmol/L Potassium 4.0 (3.6-5.2) mmol/L Chloride 101 (98-107) mmol/L Carbon Dioxide 33 H (22-30) mmol/L Anion Gap 9 L (10-20) BUN 12 (9-20) mg/dL Creatinine 0.8 (0.8-1.5) mg/dL Est GFR ( Amer) > 60 Est GFR (Non-Af Amer) > 60 Random Glucose 134 H D (75-110) mg/dL Calcium 8.8 (8.6-10.4) mg/dl Phosphorus 3.4 (2.5-4.5) mg/dL Magnesium 2.0 (1.6-2.3) mg/dL Total Bilirubin 0.3 (0.2-1.3) mg/dL AST 20 (17-59) U/L ALT 16 L D (21-72) U/L Alkaline Phosphatase 66 (38-126) U/L Total Creatine Kinase 129 (55-170) U/L CK-MB (Mass) 1.52 (0.0-3.38) ng/mL Troponin I < 0.0120 (0.00-0.120) ng/mL NT-Pro-B Natriuret Pep 44.2 (0-450) pg/mL Total Protein 7.1 (6.3-8.3) g/dL Albumin 3.9 (3.5-5.0) g/dL Globulin 3.2 (2.2-3.9) gm/dL Albumin/Globulin Ratio 1.2 (1.0-2.1) Urine Color Yellow (YELLOW) Urine Clarity Clear (Clear) Urine pH 5.0 (5.0-8.0) Ur Specific [place] 1.027 (1.003-1.030) Urine Protein Negative (NEGATIVE) mg/dL Urine Glucose (UA) Normal (Normal) mg/dL Urine Ketones Negative (NEGATIVE) mg/dL Urine Blood Negative (NEGATIVE) Urine Nitrate Negative (NEGATIVE) Urine Bilirubin Negative (NEGATIVE) Urine Urobilinogen 2.0 (0.2-1.0) mg/dL Ur Leukocyte Esterase Neg (Negative) Salvatore/uL Urine WBC (Auto) 2 (0-5) /hpf Urine RBC (Auto) 1 (0-3) /hpf Hyaline Casts (0-2) /lpf Urine Opiates Screen (NEGATIVE) Urine Methadone Screen (NEGATIVE) Ur Barbiturates Screen (NEGATIVE) Ur Phencyclidine Scrn (NEGATIVE) Ur Amphetamines Screen (NEGATIVE) U Benzodiazepines Scrn (NEGATIVE) U Oth Cocaine Metabols (NEGATIVE) U Cannabinoids Screen (NEGATIVE) 09/07/18 09/07/18 09/07/18 Range/Units 21:29 21:15 20:15 WBC 11.9 H (4.8-10.8) K/uL RBC 5.16 (4.40-5.90) Mil/uL Hgb 14.1 (12.0-18.0) g/dL Hct 44.4 (35.0-51.0) % MCV 86.1 (80.0-94.0) fL MCH 27.3 (27.0-31.0) pg MCHC 31.8 L (33.0-37.0) g/dL RDW 15.9 H (11.5-14.5) % Plt Count 219 (130-400) K/uL MPV 7.4 (7.2-11.7) fL Neut % (Auto) 78.6 H (50.0-75.0) % Lymph % (Auto) 8.4 L (20.0-40.0) % [place] % (Auto) 10.0 (0.0-10.0) % Eos % (Auto) 2.3 (0.0-4.0) % Baso % (Auto) 0.7 (0.0-2.0) % Neut # (Auto) 9.4 H (1.8-7.0) K/uL Lymph # (Auto) 1.0 (1.0-4.3) K/uL [place] # (Auto) 1.2 H (0.0-0.8) K/uL Eos # (Auto) 0.3 (0.0-0.7) K/uL Baso # (Auto) 0.1 (0.0-0.2) K/uL Neutrophils % (Manual) 78 H (50-75) % Band Neutrophils % (0-2) % Lymphocytes % (Manual) 9 L (20-40) % Monocytes % (Manual) 11 H (0-10) % Eosinophils % (Manual) 2 (0-4) % Basophils % (Manual) (0-2) % Platelet Estimate Normal (NORMAL) PT (9.7-12.2) SECONDS INR APTT (21-34) SECONDS D-Dimer, Quantitative (0-243) ng/mlDDU Puncture Site Rra Rra pCO2 67 H 95 H* (35-45) mm/Hg pO2 44 L* 101 H (80-100) mm/Hg HCO3 27.6 27.5 (21-28) mmol/L ABG pH 7.30 L 7.18 L* (7.35-7.45) ABG Total CO2 35.1 H 38.4 H (22-28) mmol/L ABG O2 Saturation 77.1 L 98.2 H (95-98) % ABG Base Excess 4.3 H 3.5 H (-2.0-3.0) mmol/L ABG Hemoglobin 14.1 14.7 (11.7-17.4) g/dL ABG Carboxyhemoglobin 3.6 H 3.5 H (0.5-1.5) % POC ABG HHb (Measured) 21.8 H 1.7 (0.0-5.0) % ABG Methemoglobin 1.3 1.2 (0.0-3.0) % Edward Test Pos Pos A-a O2 Difference 86.0 137.0 mm/Hg Respiratory Index 2.0 1.4 Hgb O2 Saturation 73.3 L 93.6 L (95.0-98.0) % Liter Flow 2.5 Vent Mode Bipap Mechanical Rate FiO2 30.0 50.0 % Tidal Volume PEEP Inspiratory BiPAP 20 Expiratory BiPAP 10 Crit Value Called To Dr shruthi hawkins md Crit Value Called By [facility] Thomas franklin evaluator transfer students Crit Value Read Back Y Y Blood Gas Notified Time 2118 2221 Sodium (132-148) mmol/L Potassium (3.6-5.2) mmol/L Chloride (98-107) mmol/L Carbon Dioxide (22-30) mmol/L Anion Gap (10-20) BUN (9-20) mg/dL Creatinine (0.8-1.5) mg/dL Est GFR ( Amer) Est GFR (Non-Af Amer) Random Glucose (75-110) mg/dL Calcium (8.6-10.4) mg/dl Phosphorus (2.5-4.5) mg/dL Magnesium (1.6-2.3) mg/dL Total Bilirubin (0.2-1.3) mg/dL AST (17-59) U/L ALT (21-72) U/L Alkaline Phosphatase (38-126) U/L Total Creatine Kinase (55-170) U/L CK-MB (Mass) (0.0-3.38) ng/mL Troponin I (0.00-0.120) ng/mL NT-Pro-B Natriuret Pep (0-450) pg/mL Total Protein (6.3-8.3) g/dL Albumin (3.5-5.0) g/dL Globulin (2.2-3.9) gm/dL Albumin/Globulin Ratio (1.0-2.1) Urine Color (YELLOW) Urine Clarity (Clear) Urine pH (5.0-8.0) Ur Specific [place] (1.003-1.030) Urine Protein (NEGATIVE) mg/dL Urine Glucose (UA) (Normal) mg/dL Urine Ketones (NEGATIVE) mg/dL Urine Blood (NEGATIVE) Urine Nitrate (NEGATIVE) Urine Bilirubin (NEGATIVE) Urine Urobilinogen (0.2-1.0) mg/dL Ur Leukocyte Esterase (Negative) Salvatore/uL Urine WBC (Auto) (0-5) /hpf Urine RBC (Auto) (0-3) /hpf Hyaline Casts (0-2) /lpf Urine Opiates Screen (NEGATIVE) Urine Methadone Screen (NEGATIVE) Ur Barbiturates Screen (NEGATIVE) Ur Phencyclidine Scrn (NEGATIVE) Ur Amphetamines Screen (NEGATIVE) U Benzodiazepines Scrn (NEGATIVE) U Oth Cocaine Metabols (NEGATIVE) U Cannabinoids Screen (NEGATIVE) Laboratory Results - last 24 hr 09/07/18 09/07/18 09/07/18 20:15 21:15 21:29 WBC 11.9 H RBC 5.16 Hgb 14.1 Hct 44.4 MCV 86.1 MCH 27.3 MCHC 31.8 L RDW 15.9 H Plt Count 219 MPV 7.4 Neut % (Auto) 78.6 H Lymph % (Auto) 8.4 L [place] % (Auto) 10.0 Eos % (Auto) 2.3 Baso % (Auto) 0.7 Neut # (Auto) 9.4 H Lymph # (Auto) 1.0 [place] # (Auto) 1.2 H Eos # (Auto) 0.3 Baso # (Auto) 0.1 Neutrophils % (Manual) 78 H Band Neutrophils % Lymphocytes % (Manual) 9 L Monocytes % (Manual) 11 H Eosinophils % (Manual) 2 Basophils % (Manual) Platelet Estimate Normal PT INR APTT D-Dimer, Quantitative Puncture Site Rra Rra pCO2 95 H* 67 H pO2 101 H 44 L* HCO3 27.5 27.6 ABG pH 7.18 L* 7.30 L ABG Total CO2 38.4 H 35.1 H ABG O2 Saturation 98.2 H 77.1 L ABG Base Excess 3.5 H 4.3 H ABG Hemoglobin 14.7 14.1 ABG Carboxyhemoglobin 3.5 H 3.6 H POC ABG HHb (Measured) 1.7 21.8 H ABG Methemoglobin 1.2 1.3 Edward Test Pos Pos A-a O2 Difference 137.0 86.0 Respiratory Index 1.4 2.0 Hgb O2 Saturation 93.6 L 73.3 L Liter Flow 2.5 Vent Mode Bipap Mechanical Rate FiO2 50.0 30.0 Tidal Volume PEEP Inspiratory BiPAP 20 Expiratory BiPAP 10 Crit Value Called To Felecia hawkins Crit Value Called By Thomas franklin evaluator transfer students Keith sanidad Crit Value Read Back Y Y Blood Gas Notified Time [id number] Sodium Potassium Chloride Carbon Dioxide Anion Gap BUN Creatinine Est GFR ( Amer) Est GFR (Non-Af Amer) Random Glucose Calcium Phosphorus Magnesium Total Bilirubin AST ALT Alkaline Phosphatase Total Creatine Kinase CK-MB (Mass) Troponin I NT-Pro-B Natriuret Pep Total Protein Albumin Globulin Albumin/Globulin Ratio Urine Color Urine Clarity Urine pH Ur Specific Hume Urine Protein Urine Glucose (UA) Urine Ketones Urine Blood Urine Nitrate Urine Bilirubin Urine Urobilinogen Ur Leukocyte Esterase Urine WBC (Auto) Urine RBC (Auto) Hyaline Casts Urine Opiates Screen Urine Methadone Screen Ur Barbiturates Screen Ur Phencyclidine Scrn Ur Amphetamines Screen U Benzodiazepines Scrn U Oth Cocaine Metabols U Cannabinoids Screen 09/07/18 09/07/18 09/08/18 21:29 23:29 00:32 WBC RBC Hgb Hct MCV MCH MCHC RDW Plt Count MPV Neut % (Auto) Lymph % (Auto) [place] % (Auto) Eos % (Auto) Baso % (Auto) Neut # (Auto) Lymph # (Auto) [place] # (Auto) Eos # (Auto) Baso # (Auto) Neutrophils % (Manual) Band Neutrophils % Lymphocytes % (Manual) Monocytes % (Manual) Eosinophils % (Manual) Basophils % (Manual) Platelet Estimate PT INR APTT D-Dimer, Quantitative Puncture Site Rr pCO2 58 H pO2 66 L HCO3 27.2 ABG pH 7.33 L ABG Total CO2 32.4 H ABG O2 Saturation 96.2 ABG Base Excess 3.1 H ABG Hemoglobin 13.7 ABG Carboxyhemoglobin 2.8 H POC ABG HHb (Measured) 3.7 ABG Methemoglobin 0.8 Edward Test Pos A-a O2 Difference 575.0 Respiratory Index 8.7 Hgb O2 Saturation 92.6 L Liter Flow Vent Mode Prvc Mechanical Rate 20 FiO2 100.0 Tidal Volume 500 PEEP 5 Inspiratory BiPAP Expiratory BiPAP Crit Value Called To Crit Value Called By Crit Value Read Back Blood Gas Notified Time Sodium 139 Potassium 4.0 Chloride 101 Carbon Dioxide 33 H Anion Gap 9 L BUN 12 Creatinine 0.8 Est GFR ( Amer) > 60 Est GFR (Non-Af Amer) > 60 Random Glucose 134 H D Calcium 8.8 Phosphorus 3.4 Magnesium 2.0 Total Bilirubin 0.3 AST 20 ALT 16 L D Alkaline Phosphatase 66 Total Creatine Kinase 129 CK-MB (Mass) 1.52 Troponin I < 0.0120 NT-Pro-B Natriuret Pep 44.2 Total Protein 7.1 Albumin 3.9 Globulin 3.2 Albumin/Globulin Ratio 1.2 Urine Color Yellow Urine Clarity Clear Urine pH 5.0 Ur Specific [place] 1.027 Urine Protein Negative Urine Glucose (UA) Normal Urine Ketones Negative Urine Blood Negative Urine Nitrate Negative Urine Bilirubin Negative Urine Urobilinogen 2.0 Ur Leukocyte Esterase Neg Urine WBC (Auto) 2 Urine RBC (Auto) 1 Hyaline Casts Urine Opiates Screen Urine Methadone Screen Ur Barbiturates Screen Ur Phencyclidine Scrn Ur Amphetamines Screen U Benzodiazepines Scrn U Oth Cocaine Metabols U Cannabinoids Screen 09/08/18 09/08/18 09/08/18 00:54 00:59 02:33 WBC RBC Hgb Hct MCV MCH MCHC RDW Plt Count MPV Neut % (Auto) Lymph % (Auto) [place] % (Auto) Eos % (Auto) Baso % (Auto) Neut # (Auto) Lymph # (Auto) [place] # (Auto) Eos # (Auto) Baso # (Auto) Neutrophils % (Manual) Band Neutrophils % Lymphocytes % (Manual) Monocytes % (Manual) Eosinophils % (Manual) Basophils % (Manual) Platelet Estimate PT 12.8 H INR 1.2 APTT 34 D-Dimer, Quantitative Puncture Site pCO2 pO2 HCO3 ABG pH ABG Total CO2 ABG O2 Saturation ABG Base Excess ABG Hemoglobin ABG Carboxyhemoglobin POC ABG HHb (Measured) ABG Methemoglobin Edward Test A-a O2 Difference Respiratory Index Hgb O2 Saturation Liter Flow Vent Mode Mechanical Rate FiO2 Tidal Volume PEEP Inspiratory BiPAP Expiratory BiPAP Crit Value Called To Crit Value Called By Crit Value Read Back Blood Gas Notified Time Sodium 137 Potassium 4.3 Chloride 100 Carbon Dioxide 31 H Anion Gap 11 BUN 14 Creatinine 0.8 Est GFR ( Amer) > 60 Est GFR (Non-Af Amer) > 60 Random Glucose 125 H Calcium 8.6 Phosphorus Magnesium Total Bilirubin AST ALT Alkaline Phosphatase Total Creatine Kinase CK-MB (Mass) Troponin I < 0.0120 NT-Pro-B Natriuret Pep Total Protein Albumin Globulin Albumin/Globulin Ratio Urine Color Urine Clarity Urine pH Ur Specific [place] Urine Protein Urine Glucose (UA) Urine Ketones Urine Blood Urine Nitrate Urine Bilirubin Urine Urobilinogen Ur Leukocyte Esterase Urine WBC (Auto) Urine RBC (Auto) Hyaline Casts Urine Opiates Screen Negative Urine Methadone Screen Negative Ur Barbiturates Screen Negative Ur Phencyclidine Scrn Negative Ur Amphetamines Screen Negative U Benzodiazepines Scrn Negative U Oth Cocaine Metabols Negative U Cannabinoids Screen Positive H 09/08/18 09/08/18 09/08/18 02:33 02:33 05:30 WBC 11.9 H RBC 5.15 Hgb 14.4 Hct 44.5 MCV 86.4 MCH 27.9 MCHC 32.3 L RDW 15.6 H Plt Count 224 MPV 7.7 Neut % (Auto) 92.8 H Lymph % (Auto) 3.7 L [place] % (Auto) 2.3 Eos % (Auto) 0.6 Baso % (Auto) 0.6 Neut # (Auto) 11.0 H Lymph # (Auto) 0.4 L [place] # (Auto) 0.3 Eos # (Auto) 0.1 Baso # (Auto) 0.1 Neutrophils % (Manual) 92 H Band Neutrophils % 1 Lymphocytes % (Manual) 3 L Monocytes % (Manual) 3 Eosinophils % (Manual) Basophils % (Manual) 1 Platelet Estimate Normal PT INR APTT D-Dimer, Quantitative 466 H Puncture Site Rr pCO2 51 H pO2 64 L HCO3 28.4 H ABG pH 7.39 ABG Total CO2 32.5 H ABG O2 Saturation 95.3 ABG Base Excess 4.6 H ABG Hemoglobin 14.9 ABG Carboxyhemoglobin 1.8 H POC ABG HHb (Measured) 4.6 ABG Methemoglobin 0.8 Edward Test Pos A-a O2 Difference 585.0 Respiratory Index 9.1 Hgb O2 Saturation 92.8 L Liter Flow Vent Mode Prvc Mechanical Rate 20 FiO2 100.0 Tidal Volume 500 PEEP 10 Inspiratory BiPAP Expiratory BiPAP Crit Value Called To Crit Value Called By Crit Value Read Back Blood Gas Notified Time Sodium Potassium Chloride Carbon Dioxide Anion Gap BUN Creatinine Est GFR ( Amer) Est GFR (Non-Af Amer) Random Glucose Calcium Phosphorus Magnesium Total Bilirubin AST ALT Alkaline Phosphatase Total Creatine Kinase CK-MB (Mass) Troponin I NT-Pro-B Natriuret Pep Total Protein Albumin Globulin Albumin/Globulin Ratio Urine Color Urine Clarity Urine pH Ur Specific [place] Urine Protein Urine Glucose (UA) Urine Ketones Urine Blood Urine Nitrate Urine Bilirubin Urine Urobilinogen Ur Leukocyte Esterase Urine WBC (Auto) Urine RBC (Auto) Hyaline Casts Urine Opiates Screen Urine Methadone Screen Ur Barbiturates Screen Ur Phencyclidine Scrn Ur Amphetamines Screen U Benzodiazepines Scrn U Oth Cocaine Metabols U Cannabinoids Screen 09/08/18 09/08/18 09/08/18 06:20 10:03 14:04 WBC RBC Hgb Hct MCV MCH MCHC RDW Plt Count MPV Neut % (Auto) Lymph % (Auto) [place] % (Auto) Eos % (Auto) Baso % (Auto) Neut # (Auto) Lymph # (Auto) [place] # (Auto) Eos # (Auto) Baso # (Auto) Neutrophils % (Manual) Band Neutrophils % Lymphocytes % (Manual) Monocytes % (Manual) Eosinophils % (Manual) Basophils % (Manual) Platelet Estimate PT INR APTT D-Dimer, Quantitative Puncture Site R/rad pCO2 48 H pO2 86 HCO3 27.9 ABG pH 7.40 ABG Total CO2 31.2 H ABG O2 Saturation 98.9 H ABG Base Excess 3.9 H ABG Hemoglobin 14.6 ABG Carboxyhemoglobin 1.5 POC ABG HHb (Measured) 1.1 ABG Methemoglobin 1.0 Edward Test Pos A-a O2 Difference 567.0 Respiratory Index 6.6 Hgb O2 Saturation 96.4 Liter Flow Vent Mode Mechanical Rate 20 FiO2 100.0 Tidal Volume 500 PEEP 10 Inspiratory BiPAP Expiratory BiPAP Crit Value Called To Crit Value Called By Crit Value Read Back Blood Gas Notified Time Sodium Potassium Chloride Carbon Dioxide Anion Gap BUN Creatinine Est GFR ( Amer) Est GFR (Non-Af Amer) Random Glucose Calcium Phosphorus Magnesium Total Bilirubin AST ALT Alkaline Phosphatase Total Creatine Kinase CK-MB (Mass) Troponin I < 0.0120 NT-Pro-B Natriuret Pep Total Protein Albumin Globulin Albumin/Globulin Ratio Urine Color Straw Urine Clarity Clear Urine pH 5.0 Ur Specific [place] 1.006 Urine Protein Negative Urine Glucose (UA) Normal Urine Ketones Negative Urine Blood Negative Urine Nitrate Negative Urine Bilirubin Negative Urine Urobilinogen Normal Ur Leukocyte Esterase Neg Urine WBC (Auto) 1 Urine RBC (Auto) 1 Hyaline Casts 3-5 H Urine Opiates Screen Urine Methadone Screen Ur Barbiturates Screen Ur Phencyclidine Scrn Ur Amphetamines Screen U Benzodiazepines Scrn U Oth Cocaine Metabols U Cannabinoids Screen Radiology Impressions: Radiology Impressions Chest X-Ray 09/07/18 21:05 IMPRESSION: No active pulmonary disease. Chest X-Ray 09/07/18 22:54 IMPRESSION: 1. Endotracheal tube is low in position and terminates 9 mm proximal to the juan luis. 2. Moderate cardiomegaly and mild pulmonary venous congestion. Multifocal linear atelectasis in the lungs. Chest X-Ray 09/08/18 05:00 IMPRESSION: Endotracheal tube terminates 3 cm proximal to the juan luis. Nasogastric tube terminates in the stomach. Little interval change in pulmonary venous congestion and multifocal linear atelectasis in the lungs. Persistent moderate cardiomegaly with prominent central vasculature. Chest CT 09/08/18 07:07 IMPRESSION: No CTA evidence for acute pulmonary embolism. Confluent airspace disease in both lower lobes which may represent atelectasis/pneumonia, aspiration pneumonitis is a consideration. Clinical follow-up is advised. Endotracheal tube terminates 2 cm proximal to the juan luis. The nasogastric tube terminates in the stomach. EKG/Cardiology Studies: Cardiology / EKG Studies 09/07/18 21:05 ELECTROCARDIOGRAM Stat Comment: Mode Of Transportation: Reason For Exam: leg edema 09/08/18 07:30 ELECTROCARDIOGRAM Routine Comment: Mode Of Transportation: PORTABLE Reason For Exam: SOB Review of Systems - Review of Systems Systems not reviewed;Unavailable: Intubated Critical Care Progress Note - Ventilator Checklist Head of Bed 30 Degrees: Yes Daily Sedation Vacation: Yes Daily Assessment of Readiness to Wean: Yes Daily Spontaneous Breathing Trial: Yes PUD Prophalyxis: Yes DVT Prophylaxis: Yes Oral Care with Chlorhexidine Gluconate {CHG}: Yes - Nutrition Nutrition: Nutrition Category Date Time Status NPO Diet [DIET] Diets 09/07/18 Dinner Active Assessment/Plan (1) Hypercapnic respiratory failure Assessment and plan: 37 years old male with hx of Kidney stones, Asthma, Sleep Apnea not on CPAP. p/w acute respiratory failure and lower extremity edema. Intubated in ED (09/07). Neuro: sedated with propofol gtt, daily sedation vacation. Pulm: acute respiratory failure with hypoxia and hypercapnia, on vent. CT angio negative for PE. ELLEN no acute intervention. Hx of asthma, started on inhaled steroid and duonebs. Pulmonary edema, diuresing. CV: hemodynamically stable. Ordered echo, f/u results. Consulted cardio - Dr. Bill Hem: no acute issues Renal: diuresing with adequate output, lasix 40 mg IV q12h. Endo: no acute issues GI: NPO, Jevity. ID: no acute issues DVT proph - lovenox GI proph - not currently indicated agustin for strict I/O's during acute illness Code status - full code Critical Care Time spent 60 minutes Multi-disciplinary rounds were performed with house staff, nursing, speech therapy, respiratory therapy, pharmacy and nutrition with integrated input from the primary team/attending and other consulting services. The documented time is cumulative and includes review of patient data/exams/labs/chart review and examination of the patient on rounds and throughout the day; time is exclusive of any procedures or teaching time. Current Visit: Yes Status: Acute
[2018-09-08] MEDS ORDERED: Metoprolol 1 mg/ml Inj IVP ONE (17:45)
--- NOTE | 2018-09-08 18:44 | CP.PCM.CON ---
History of Present Illness - History of Present Illness History of Present Illness: 37 y/o M c PMHx asthma, sleep apnea p/w leg edema and drowsiness x weeks. Mother at bedside speaking for patient who is constantly falling asleep. She reports patient had [place] [facility] [place] and was intubated for it. She states while they were there, leg swelling improved but they never discovered cause of leg edema and is unsure if patient has heart condition. Were told he has sleep apnea but no CPAP at home. Full HPI/ROS unobtainable due to patient's condition. Chief Complaint (Nursing): Shortness Of Breath - Medical History PMH: Asthma, HTN, Kidney Stones Family History: States: No Known Family Hx - Social History Hx Tobacco Use: No Hx Alcohol Use: Yes Hx Substance Use: Yes (marijuana) - Immunization History Hx Tetanus Toxoid Vaccination: Yes Hx Influenza Vaccination: No Hx Pneumococcal Vaccination: No Review Of Systems Review Of Systems: ROS cannot be obtained secondary to pt's inabilty to answer questions. Physical Exam - Physical Exam Additional Physical Exam Comments: gen drowsy, falling asleep constantly head nc/at eyes perrl ent mmm neck supple chest no tenderness cv tachycardic lungs cta b/l abd soft, nt back no cva tenderness skin no rash neuro somnolent extremities bilateral pitting edema CXR FINDINGS: LUNGS: The lungs are well inflated and clear. There is mild pulmonary venous congestion. PLEURA: No pleural effusions or pneumothorax. CARDIOVASCULAR: Moderate cardiomegaly and prominent central vasculature. No aortic atherosclerotic calcifications present. OSSEOUS STRUCTURES: Within normal limits for the patient's age. VISUALIZED UPPER ABDOMEN: Normal. OTHER FINDINGS: None. Past Patient History - Past Medical History & Family History Past Medical History?: Yes - Past Social History Smoking Status: Former Smoker Chewing Tobacco Use: No Cigar Use: No Alcohol: Occasional Drugs: Cannabis, Inhalants Home Situation {Lives}: With Family - CARDIAC Hx Hypertension: Yes - PULMONARY Hx Asthma: Yes Hx Sleep Apnea: Yes - NEUROLOGICAL Hx Neurological Disorder: No - HEENT Hx HEENT Problems: No - RENAL Hx Kidney Stones: Yes - ENDOCRINE/METABOLIC Hx Endocrine Disorders: No - HEMATOLOGICAL/ONCOLOGICAL Hx Blood Disorders: No - INTEGUMENTARY Hx Dermatological Problems: No - MUSCULOSKELETAL/RHEUMATOLOGICAL Hx Musculoskeletal Disorders: No - GASTROINTESTINAL Hx Gastrointestinal Disorders: No - GENITOURINARY/GYNECOLOGICAL Hx Genitourinary Disorders: No - PSYCHIATRIC Hx Psychophysiologic Disorder: No Hx Substance Use: Yes (marijuana) - SURGICAL HISTORY Hx Surgeries: No - ANESTHESIA Hx Anesthesia: No Meds Allergies/Adverse Reactions: Allergies Allergy/AdvReac Type Severity Reaction Status Date / Time shrimp Allergy RASH Verified 09/07/18 20:37 walnuts Allergy RASH Uncoded 09/07/18 20:37 - Medications Medications: Current Medications Albuterol/Ipratropium (Duoneb 3 Mg/0.5 Mg (3 Ml) Ud) 3 ml INH RQ4 ANGELA Last Admin: 09/08/18 16:37 Dose: 3 ml Budesonide (Pulmicort Respules) 0.5 mg INH RQ12 ANGELA Enoxaparin Sodium (Lovenox) 40 mg SC DAILY ANGELA Last Admin: 09/08/18 13:10 Dose: 40 mg Furosemide (Lasix) 40 mg IVP Q12H ANGELA Last Admin: 09/08/18 09:45 Dose: 40 mg Propofol (Diprivan) 1,000 mg in 100 mls @ 4.286 mls/hr IV .[id number] PRN; Protocol PRN Reason: TITRATE PER MD ORDER Last Admin: 09/08/18 18:23 Dose: 30 mcg/kg/min, 25.719 mls/hr Lorazepam (Ativan) 1 mg IVP Q4H PRN PRN Reason: Agitation Last Admin: 09/08/18 13:54 Dose: 1 mg Results - Vital Signs Recent Vital Signs: Last Vital Signs Temp 98.2 F 09/08/18 16:00 Pulse 112 H 09/08/18 18:00 Resp 20 09/08/18 18:00 BP 142/75 09/08/18 18:00 Pulse Ox 95 09/08/18 18:00 - Labs Result Diagrams: 09/08/18 02:33 09/08/18 02:33 Labs: Laboratory Results - last 24 hr 09/07/18 09/07/18 09/07/18 20:15 21:15 21:29 WBC 11.9 H RBC 5.16 Hgb 14.1 Hct 44.4 MCV 86.1 MCH 27.3 MCHC 31.8 L RDW 15.9 H Plt Count 219 MPV 7.4 Neut % (Auto) 78.6 H Lymph % (Auto) 8.4 L [place] % (Auto) 10.0 Eos % (Auto) 2.3 Baso % (Auto) 0.7 Neut # (Auto) 9.4 H Lymph # (Auto) 1.0 [place] # (Auto) 1.2 H Eos # (Auto) 0.3 Baso # (Auto) 0.1 Neutrophils % (Manual) 78 H Band Neutrophils % Lymphocytes % (Manual) 9 L Monocytes % (Manual) 11 H Eosinophils % (Manual) 2 Basophils % (Manual) Platelet Estimate Normal PT INR APTT D-Dimer, Quantitative Puncture Site Rra Rra pCO2 95 H* 67 H pO2 101 H 44 L* HCO3 27.5 27.6 ABG pH 7.18 L* 7.30 L ABG Total CO2 38.4 H 35.1 H ABG O2 Saturation 98.2 H 77.1 L ABG Base Excess 3.5 H 4.3 H ABG Hemoglobin 14.7 14.1 ABG Carboxyhemoglobin 3.5 H 3.6 H POC ABG HHb (Measured) 1.7 21.8 H ABG Methemoglobin 1.2 1.3 Edward Test Pos Pos A-a O2 Difference 137.0 86.0 Respiratory Index 1.4 2.0 Hgb O2 Saturation 93.6 L 73.3 L Liter Flow 2.5 Vent Mode Bipap Mechanical Rate FiO2 50.0 30.0 Tidal Volume PEEP Inspiratory BiPAP 20 Expiratory BiPAP 10 Crit Value Called To Felecia hawkins Crit Value Called By Thomas franklin drill press operator numerical control Keith sanidad Crit Value Read Back Y Y Blood Gas Notified Time 2221 2118 Sodium Potassium Chloride Carbon Dioxide Anion Gap BUN Creatinine Est GFR ( Amer) Est GFR (Non-Af Amer) Random Glucose Calcium Phosphorus Magnesium Total Bilirubin AST ALT Alkaline Phosphatase Total Creatine Kinase CK-MB (Mass) Troponin I NT-Pro-B Natriuret Pep Total Protein Albumin Globulin Albumin/Globulin Ratio Urine Color Urine Clarity Urine pH Ur Specific [place] Urine Protein Urine Glucose (UA) Urine Ketones Urine Blood Urine Nitrate Urine Bilirubin Urine Urobilinogen Ur Leukocyte Esterase Urine WBC (Auto) Urine RBC (Auto) Hyaline Casts Urine Opiates Screen Urine Methadone Screen Ur Barbiturates Screen Ur Phencyclidine Scrn Ur Amphetamines Screen U Benzodiazepines Scrn U Oth Cocaine Metabols U Cannabinoids Screen 09/07/18 09/07/18 09/08/18 21:29 23:29 00:32 WBC RBC Hgb Hct MCV MCH MCHC RDW Plt Count MPV Neut % (Auto) Lymph % (Auto) [place] % (Auto) Eos % (Auto) Baso % (Auto) Neut # (Auto) Lymph # (Auto) [place] # (Auto) Eos # (Auto) Baso # (Auto) Neutrophils % (Manual) Band Neutrophils % Lymphocytes % (Manual) Monocytes % (Manual) Eosinophils % (Manual) Basophils % (Manual) Platelet Estimate PT INR APTT D-Dimer, Quantitative Puncture Site Rr pCO2 58 H pO2 66 L HCO3 27.2 ABG pH 7.33 L ABG Total CO2 32.4 H ABG O2 Saturation 96.2 ABG Base Excess 3.1 H ABG Hemoglobin 13.7 ABG Carboxyhemoglobin 2.8 H POC ABG HHb (Measured) 3.7 ABG Methemoglobin 0.8 Edward Test Pos A-a O2 Difference 575.0 Respiratory Index 8.7 Hgb O2 Saturation 92.6 L Liter Flow Vent Mode Prvc Mechanical Rate 20 FiO2 100.0 Tidal Volume 500 PEEP 5 Inspiratory BiPAP Expiratory BiPAP Crit Value Called To Crit Value Called By Crit Value Read Back Blood Gas Notified Time Sodium 139 Potassium 4.0 Chloride 101 Carbon Dioxide 33 H Anion Gap 9 L BUN 12 Creatinine 0.8 Est GFR ( Amer) > 60 Est GFR (Non-Af Amer) > 60 Random Glucose 134 H D Calcium 8.8 Phosphorus 3.4 Magnesium 2.0 Total Bilirubin 0.3 AST 20 ALT 16 L D Alkaline Phosphatase 66 Total Creatine Kinase 129 CK-MB (Mass) 1.52 Troponin I < 0.0120 NT-Pro-B Natriuret Pep 44.2 Total Protein 7.1 Albumin 3.9 Globulin 3.2 Albumin/Globulin Ratio 1.2 Urine Color Yellow Urine Clarity Clear Urine pH 5.0 Ur Specific [place] 1.027 Urine Protein Negative Urine Glucose (UA) Normal Urine Ketones Negative Urine Blood Negative Urine Nitrate Negative Urine Bilirubin Negative Urine Urobilinogen 2.0 Ur Leukocyte Esterase Neg Urine WBC (Auto) 2 Urine RBC (Auto) 1 Hyaline Casts Urine Opiates Screen Urine Methadone Screen Ur Barbiturates Screen Ur Phencyclidine Scrn Ur Amphetamines Screen U Benzodiazepines Scrn U Oth Cocaine Metabols U Cannabinoids Screen 0409/08/18 09/08/18 00:54 00:59 02:33 WBC RBC Hgb Hct MCV MCH MCHC RDW Plt Count MPV Neut % (Auto) Lymph % (Auto) [place] % (Auto) Eos % (Auto) Baso % (Auto) Neut # (Auto) Lymph # (Auto) [place] # (Auto) Eos # (Auto) Baso # (Auto) Neutrophils % (Manual) Band Neutrophils % Lymphocytes % (Manual) Monocytes % (Manual) Eosinophils % (Manual) Basophils % (Manual) Platelet Estimate PT 12.8 H INR 1.2 APTT 34 D-Dimer, Quantitative Puncture Site pCO2 pO2 HCO3 ABG pH ABG Total CO2 ABG O2 Saturation ABG Base Excess ABG Hemoglobin ABG Carboxyhemoglobin POC ABG HHb (Measured) ABG Methemoglobin Edward Test A-a O2 Difference Respiratory Index Hgb O2 Saturation Liter Flow Vent Mode Mechanical Rate FiO2 Tidal Volume PEEP Inspiratory BiPAP Expiratory BiPAP Crit Value Called To Crit Value Called By Crit Value Read Back Blood Gas Notified Time Sodium 137 Potassium 4.3 Chloride 100 Carbon Dioxide 31 H Anion Gap 11 BUN 14 Creatinine 0.8 Est GFR ( Amer) > 60 Est GFR (Non-Af Amer) > 60 Random Glucose 125 H Calcium 8.6 Phosphorus Magnesium Total Bilirubin AST ALT Alkaline Phosphatase Total Creatine Kinase CK-MB (Mass) Troponin I < 0.0120 NT-Pro-B Natriuret Pep Total Protein Albumin Globulin Albumin/Globulin Ratio Urine Color Urine Clarity Urine pH Ur Specific [place] Urine Protein Urine Glucose (UA) Urine Ketones Urine Blood Urine Nitrate Urine Bilirubin Urine Urobilinogen Ur Leukocyte Esterase Urine WBC (Auto) Urine RBC (Auto) Hyaline Casts Urine Opiates Screen Negative Urine Methadone Screen Negative Ur Barbiturates Screen Negative Ur Phencyclidine Scrn Negative Ur Amphetamines Screen Negative U Benzodiazepines Scrn Negative U Oth Cocaine Metabols Negative U Cannabinoids Screen Positive H 09/08/18 09/08/18 09/08/18 02:33 02:33 05:30 WBC 11.9 H RBC 5.15 Hgb 14.4 Hct 44.5 MCV 86.4 MCH 27.9 MCHC 32.3 L RDW 15.6 H Plt Count 224 MPV 7.7 Neut % (Auto) 92.8 H Lymph % (Auto) 3.7 L [place] % (Auto) 2.3 Eos % (Auto) 0.6 Baso % (Auto) 0.6 Neut # (Auto) 11.0 H Lymph # (Auto) 0.4 L [place] # (Auto) 0.3 Eos # (Auto) 0.1 Baso # (Auto) 0.1 Neutrophils % (Manual) 92 H Band Neutrophils % 1 Lymphocytes % (Manual) 3 L Monocytes % (Manual) 3 Eosinophils % (Manual) Basophils % (Manual) 1 Platelet Estimate Normal PT INR APTT D-Dimer, Quantitative 466 H Puncture Site Rr pCO2 51 H pO2 64 L HCO3 28.4 H ABG pH 7.39 ABG Total CO2 32.5 H ABG O2 Saturation 95.3 ABG Base Excess 4.6 H ABG Hemoglobin 14.9 ABG Carboxyhemoglobin 1.8 H POC ABG HHb (Measured) 4.6 ABG Methemoglobin 0.8 Edward Test Pos A-a O2 Difference 585.0 Respiratory Index 9.1 Hgb O2 Saturation 92.8 L Liter Flow Vent Mode Prvc Mechanical Rate 20 FiO2 100.0 Tidal Volume 500 PEEP 10 Inspiratory BiPAP Expiratory BiPAP Crit Value Called To Crit Value Called By Crit Value Read Back Blood Gas Notified Time Sodium Potassium Chloride Carbon Dioxide Anion Gap BUN Creatinine Est GFR ( Amer) Est GFR (Non-Af Amer) Random Glucose Calcium Phosphorus Magnesium Total Bilirubin AST ALT Alkaline Phosphatase Total Creatine Kinase CK-MB (Mass) Troponin I NT-Pro-B Natriuret Pep Total Protein Albumin Globulin Albumin/Globulin Ratio Urine Color Urine Clarity Urine pH Ur Specific [place] Urine Protein Urine Glucose (UA) Urine Ketones Urine Blood Urine Nitrate Urine Bilirubin Urine Urobilinogen Ur Leukocyte Esterase Urine WBC (Auto) Urine RBC (Auto) Hyaline Casts Urine Opiates Screen Urine Methadone Screen Ur Barbiturates Screen Ur Phencyclidine Scrn Ur Amphetamines Screen U Benzodiazepines Scrn U Oth Cocaine Metabols U Cannabinoids Screen 09/08/18 09/08/18 09/08/18 06:20 10:03 14:04 WBC RBC Hgb Hct MCV MCH MCHC RDW Plt Count MPV Neut % (Auto) Lymph % (Auto) [place] % (Auto) Eos % (Auto) Baso % (Auto) Neut # (Auto) Lymph # (Auto) [place] # (Auto) Eos # (Auto) Baso # (Auto) Neutrophils % (Manual) Band Neutrophils % Lymphocytes % (Manual) Monocytes % (Manual) Eosinophils % (Manual) Basophils % (Manual) Platelet Estimate PT INR APTT D-Dimer, Quantitative Puncture Site R/rad pCO2 48 H pO2 86 HCO3 27.9 ABG pH 7.40 ABG Total CO2 31.2 H ABG O2 Saturation 98.9 H ABG Base Excess 3.9 H ABG Hemoglobin 14.6 ABG Carboxyhemoglobin 1.5 POC ABG HHb (Measured) 1.1 ABG Methemoglobin 1.0 Edward Test Pos A-a O2 Difference 567.0 Respiratory Index 6.6 Hgb O2 Saturation 96.4 Liter Flow Vent Mode Mechanical Rate 20 FiO2 100.0 Tidal Volume 500 PEEP 10 Inspiratory BiPAP Expiratory BiPAP Crit Value Called To Crit Value Called By Crit Value Read Back Blood Gas Notified Time Sodium Potassium Chloride Carbon Dioxide Anion Gap BUN Creatinine Est GFR ( Amer) Est GFR (Non-Af Amer) Random Glucose Calcium Phosphorus Magnesium Total Bilirubin AST ALT Alkaline Phosphatase Total Creatine Kinase CK-MB (Mass) Troponin I < 0.0120 NT-Pro-B Natriuret Pep Total Protein Albumin Globulin Albumin/Globulin Ratio Urine Color Straw Urine Clarity Clear Urine pH 5.0 Ur Specific [place] 1.006 Urine Protein Negative Urine Glucose (UA) Normal Urine Ketones Negative Urine Blood Negative Urine Nitrate Negative Urine Bilirubin Negative Urine Urobilinogen Normal Ur Leukocyte Esterase Neg Urine WBC (Auto) 1 Urine RBC (Auto) 1 Hyaline Casts 3-5 H Urine Opiates Screen Urine Methadone Screen Ur Barbiturates Screen Ur Phencyclidine Scrn Ur Amphetamines Screen U Benzodiazepines Scrn U Oth Cocaine Metabols U Cannabinoids Screen Assessment & Plan - Assessment and Plan (Free Text) Assessment: 37 M admitted for respiratory failure Intubated B/L pedal edema Pro BNP normal Trops normal Check ECHO Continue IV Lasix as needed
[2018-09-08] MEDS: Budesonide 0.5 mg/2 ml Inhal Susp UD INH SCH (20:12)
[2018-09-08] MEDS ORDERED: Acetaminophen 650mg/20.3ml solution UD NG ONE (21:10)
--- NOTE | 2018-09-08 21:11 | CARD ---
APPROVED REPORT Date of service: 09/08/2018 EXAM: Two-dimensional and M-mode echocardiogram with Doppler and color Doppler. Other Information Quality : Technically LimitedRhythm : Technically limited study due to patient on vent INDICATION Dyspnea Congestive Heart Failure RISK FACTORS Obesity 2D DIMENSIONS IVSd1.2 (0.7-1.1cm)Aortic Root (2D)2.9 (2.0-3.7cm) LVDd4.6 (3.9-5.9cm)PWd1.0 (0.7-1.1cm) LA [id number] (18-58mL)LVDs2.9 (2.5-4.0cm) FS (%) 36.9 %LVEF (%)66.9 (>50%) LVEF (Roque's)66.56 %IVC0.00 cm M-Mode DIMENSIONS RVDd2.07 (2.1-3.2cm)Left Atrium (MM)3.68 (2.5-4.0cm) IVSd1.00 (0.7-1.1cm)Aortic Root3.09 (2.2-3.7cm) LVDd5.57 (4.0-5.6cm)Aortic Cusp Exc.2.26 (1.5-2.0cm) PWd0.96 (0.7-1.1cm)FS (%) 43 % LVDs3.17 (2.0-3.8cm)LVEF (%)74 (>50%) Mitral Valve MV E Cbirzpbs22.4cm/sMV A Xsmzexlj57.9cm/sE/A ratio0.8 TDI Lateral E' Peak V13.39cm/sMedial E' Peak V7.64cm/sE/Lateral E'4.2 E/Medial E'7.4 Tricuspid Valve TR Peak [id number]/sTR Peak Gr.[id number] LEFT VENTRICLE The left ventricle is normal size. There is normal left ventricular wall thickness. Left ventricle systolic function is normal. The Ejection Fraction is 65-70%. There is normal LV segmental wall motion. Tissue Doppler imaging reveals abnormal left ventricular diastolic dysfunction. No left ventricle thrombus noted on this study. RIGHT VENTRICLE The right ventricle is normal size. There is normal right ventricular wall thickness. The right ventricular systolic function is normal. ATRIA The left atrium size is normal. The right atrium size is normal. The interatrial septum is intact with no evidence for an atrial septal defect. AORTIC VALVE The aortic valve is normal in structure. No aortic regurgitation is present. There is no aortic valvular stenosis. There is no aortic valvular vegetation. MITRAL VALVE The mitral valve is normal in structure. There is no evidence of mitral valve prolapse. There is no mitral valve stenosis. There is no mitral valve regurgitation noted. TRICUSPID VALVE The tricuspid valve is normal in structure. There is trace to mild tricuspid regurgitation. Right ventricular systolic pressure is estimated at less than 30 mmHg. There is no pulmonary hypertension. PULMONIC VALVE The pulmonic valve is not well visualized. There is no pulmonic valvular regurgitation. GREAT VESSELS The aortic root is normal in size. PERICARDIAL EFFUSION There is no significant pericardial effusion. <Conclusion> Left ventricle systolic function is normal. The Ejection Fraction is 65-70%. Diastolic dysfunction. No aortic regurgitation is present. There is no mitral valve regurgitation noted. There is trace to mild tricuspid regurgitation. There is no pulmonary hypertension. There is no pulmonic valvular regurgitation.
[2018-09-09] MEDS: Albuterol-Ipratrop 3 mg / 0.5 (3 ml) UD INH SCH ×5 (00:28→20:07)
[2018-09-09] MEDS: Propofol 10 mg/ml 1,000 MG/100 ML VIAL IV PRN ×8 (00:57→23:51)
--- NOTE | 2018-09-09 01:04 | CP.PCM.HP ---
Present on Admission - Present on Admission Any Indicators Present on Admission: No Past Patient History - Past Medical History & Family History Past Medical History?: Yes - Past Social History Smoking Status: Former Smoker Chewing Tobacco Use: No Cigar Use: No Alcohol: Occasional Drugs: Cannabis, Inhalants Home Situation {Lives}: With Family - CARDIAC Hx Hypertension: Yes - PULMONARY Hx Asthma: Yes Hx Sleep Apnea: Yes - NEUROLOGICAL Hx Neurological Disorder: No - HEENT Hx HEENT Problems: No - RENAL Hx Kidney Stones: Yes - ENDOCRINE/METABOLIC Hx Endocrine Disorders: No - HEMATOLOGICAL/ONCOLOGICAL Hx Blood Disorders: No - INTEGUMENTARY Hx Dermatological Problems: No - MUSCULOSKELETAL/RHEUMATOLOGICAL Hx Musculoskeletal Disorders: No - GASTROINTESTINAL Hx Gastrointestinal Disorders: No - GENITOURINARY/GYNECOLOGICAL Hx Genitourinary Disorders: No - PSYCHIATRIC Hx Psychophysiologic Disorder: No Hx Substance Use: Yes (marijuana) - SURGICAL HISTORY Hx Surgeries: No - ANESTHESIA Hx Anesthesia: No Meds Allergies/Adverse Reactions: Allergies Allergy/AdvReac Type Severity Reaction Status Date / Time shrimp Allergy RASH Verified 09/07/18 20:37 walnuts Allergy RASH Uncoded 09/07/18 20:37 Results - Vital Signs Recent Vital Signs: Last Vital Signs Temp 100.4 F H 09/09/18 00:00 Pulse 115 H 09/09/18 00:12 Resp 24 09/09/18 00:12 BP 120/60 09/09/18 00:00 Pulse Ox 94 L 09/09/18 00:12 - Labs Result Diagrams: 09/08/18 02:33 09/08/18 02:33 Labs: Laboratory Results - last 24 hr 09/08/18 09/08/18 09/08/18 00:54 00:59 02:33 WBC RBC Hgb Hct MCV MCH MCHC RDW Plt Count MPV Neut % (Auto) Lymph % (Auto) Miner % (Auto) Eos % (Auto) Baso % (Auto) Neut # (Auto) Lymph # (Auto) Miner # (Auto) Eos # (Auto) Baso # (Auto) Neutrophils % (Manual) Band Neutrophils % Lymphocytes % (Manual) Monocytes % (Manual) Basophils % (Manual) Platelet Estimate PT 12.8 H INR 1.2 APTT 34 D-Dimer, Quantitative Puncture Site pCO2 pO2 HCO3 ABG pH ABG Total CO2 ABG O2 Saturation ABG Base Excess ABG Hemoglobin ABG Carboxyhemoglobin POC ABG HHb (Measured) ABG Methemoglobin Edward Test A-a O2 Difference Respiratory Index Hgb O2 Saturation Vent Mode Mechanical Rate FiO2 Tidal Volume PEEP Sodium 137 Potassium 4.3 Chloride 100 Carbon Dioxide 31 H Anion Gap 11 BUN 14 Creatinine 0.8 Est GFR ( Amer) > 60 Est GFR (Non-Af Amer) > 60 Random Glucose 125 H Calcium 8.6 Troponin I < 0.0120 Urine Color Urine Clarity Urine pH Ur Specific [place] Urine Protein Urine Glucose (UA) Urine Ketones Urine Blood Urine Nitrate Urine Bilirubin Urine Urobilinogen Ur Leukocyte Esterase Urine WBC (Auto) Urine RBC (Auto) Hyaline Casts Urine Opiates Screen Negative Urine Methadone Screen Negative Ur Barbiturates Screen Negative Ur Phencyclidine Scrn Negative Ur Amphetamines Screen Negative U Benzodiazepines Scrn Negative U Oth Cocaine Metabols Negative U Cannabinoids Screen Positive H 09/08/18 09/08/18 09/08/18 02:33 02:33 05:30 WBC 11.9 H RBC 5.15 Hgb 14.4 Hct 44.5 MCV 86.4 MCH 27.9 MCHC 32.3 L RDW 15.6 H Plt Count 224 MPV 7.7 Neut % (Auto) 92.8 H Lymph % (Auto) 3.7 L Miner % (Auto) 2.3 Eos % (Auto) 0.6 Baso % (Auto) 0.6 Neut # (Auto) 11.0 H Lymph # (Auto) 0.4 L Miner # (Auto) 0.3 Eos # (Auto) 0.1 Baso # (Auto) 0.1 Neutrophils % (Manual) 92 H Band Neutrophils % 1 Lymphocytes % (Manual) 3 L Monocytes % (Manual) 3 Basophils % (Manual) 1 Platelet Estimate Normal PT INR APTT D-Dimer, Quantitative 466 H Puncture Site Rr pCO2 51 H pO2 64 L HCO3 28.4 H ABG pH 7.39 ABG Total CO2 32.5 H ABG O2 Saturation 95.3 ABG Base Excess 4.6 H ABG Hemoglobin 14.9 ABG Carboxyhemoglobin 1.8 H POC ABG HHb (Measured) 4.6 ABG Methemoglobin 0.8 Edward Test Pos A-a O2 Difference 585.0 Respiratory Index 9.1 Hgb O2 Saturation 92.8 L Vent Mode Prvc Mechanical Rate 20 FiO2 100.0 Tidal Volume 500 PEEP 10 Sodium Potassium Chloride Carbon Dioxide Anion Gap BUN Creatinine Est GFR ( Amer) Est GFR (Non-Af Amer) Random Glucose Calcium Troponin I Urine Color Urine Clarity Urine pH Ur Specific [place] Urine Protein Urine Glucose (UA) Urine Ketones Urine Blood Urine Nitrate Urine Bilirubin Urine Urobilinogen Ur Leukocyte Esterase Urine WBC (Auto) Urine RBC (Auto) Hyaline Casts Urine Opiates Screen Urine Methadone Screen Ur Barbiturates Screen Ur Phencyclidine Scrn Ur Amphetamines Screen U Benzodiazepines Scrn U Oth Cocaine Metabols U Cannabinoids Screen 09/08/18 09/08/18 09/08/18 06:20 10:03 14:04 WBC RBC Hgb Hct MCV MCH MCHC RDW Plt Count MPV Neut % (Auto) Lymph % (Auto) Miner % (Auto) Eos % (Auto) Baso % (Auto) Neut # (Auto) Lymph # (Auto) Miner # (Auto) Eos # (Auto) Baso # (Auto) Neutrophils % (Manual) Band Neutrophils % Lymphocytes % (Manual) Monocytes % (Manual) Basophils % (Manual) Platelet Estimate PT INR APTT D-Dimer, Quantitative Puncture Site R/rad pCO2 48 H pO2 86 HCO3 27.9 ABG pH 7.40 ABG Total CO2 31.2 H ABG O2 Saturation 98.9 H ABG Base Excess 3.9 H ABG Hemoglobin 14.6 ABG Carboxyhemoglobin 1.5 POC ABG HHb (Measured) 1.1 ABG Methemoglobin 1.0 Edward Test Pos A-a O2 Difference 567.0 Respiratory Index 6.6 Hgb O2 Saturation 96.4 Vent Mode Mechanical Rate 20 FiO2 100.0 Tidal Volume 500 PEEP 10 Sodium Potassium Chloride Carbon Dioxide Anion Gap BUN Creatinine Est GFR ( Amer) Est GFR (Non-Af Amer) Random Glucose Calcium Troponin I < 0.0120 Urine Color Straw Urine Clarity Clear Urine pH 5.0 Ur Specific [place] 1.006 Urine Protein Negative Urine Glucose (UA) Normal Urine Ketones Negative Urine Blood Negative Urine Nitrate Negative Urine Bilirubin Negative Urine Urobilinogen Normal Ur Leukocyte Esterase Neg Urine WBC (Auto) 1 Urine RBC (Auto) 1 Hyaline Casts 3-5 H Urine Opiates Screen Urine Methadone Screen Ur Barbiturates Screen Ur Phencyclidine Scrn Ur Amphetamines Screen U Benzodiazepines Scrn U Oth Cocaine Metabols U Cannabinoids Screen
[2018-09-09 04:54] LABS: BASO # 0.1 K/uL (0.0-0.2); BASO % 0.5 % (0.0-2.0); EOS % 0.2 % (0.0-4.0); HEMOGLOBIN 14.9 g/dL (12.0-18.0); LYMPH # 1.4 K/uL (1.0-4.3); LYMPH % 8.9 % (20.0-40.0); MEAN CELL VOLUME 84.6 fL (80.0-94.0); MEAN CORPUSCULAR HEMOGLOBIN 26.8 pg (27.0-31.0); MEAN CORPUSCULAR HGB CONC 31.7 g/dL (33.0-37.0); MEAN PLATELET VOLUME 7.7 fL (7.2-11.7); MONO # 1.9 K/uL (0.0-0.8); MONO % 11.6 % (0.0-10.0); NEUT # 12.8 K/uL (1.8-7.0); NEUT % 78.8 % (50.0-75.0); PLATELET COUNT 226 K/uL (130-400); RBC 5.55 Mil/uL (4.40-5.90); RED CELL DISTRIBUTION WIDTH 15.7 % (11.5-14.5); WHITE BLOOD COUNT 16.2 K/uL (4.8-10.8)
[2018-09-09 05:09] LABS: ALB/GLOB RATIO 1.2 (1.0-2.1); ALBUMIN 3.7 g/dL (3.5-5.0); ALT/SGPT 7 U/L (21-72); AST/SGOT 18 U/L (17-59); BLOOD UREA NITROGEN 15 mg/dL (9-20); CALCIUM 8.3 mg/dl (8.6-10.4); GFR NON-AFRICAN AMERICAN > 60
[2018-09-09 06:14] LABS: ABG ALLEN TEST POS; ARTERIAL BLOOD GAS O2 SAT 95.7 % (95-98); ARTERIAL BLOOD GAS PCO2 50 mm/Hg (35-45); ARTERIAL BLOOD GAS PH 7.45 (7.35-7.45); ARTERIAL BLOOD GAS PO2 61 mm/Hg (80-100); ARTERIAL BLOOD GAS TCO2 36.3 mmol/L (22-28)
[2018-09-09 07:09] LABS: LYMPHOCYTE 10 % (20-40); MONOCYTE 10 % (0-10); NEUTROPHIL 78 % (50-75); PLATELET ESTIMATE NORMAL (NORMAL); REACTIVE LYMPHOCYTES 2 % (0-0); TOTAL CELLS COUNTED 100
[2018-09-09 07:10] LABS: ANISOCYTOSIS SLIGHT; POLYCHROMIC SLIGHT
[2018-09-09] MEDS: Budesonide 0.5 mg/2 ml Inhal Susp UD INH SCH ×2 (07:28→20:07)
[2018-09-09] MEDS ORDERED: Sodium Chloride 0.9% 1,000 ML IV SCH (08:00)
--- NOTE | 2018-09-09 08:23 | RAD ---
Date of service: 09/09/2018 HISTORY: F/U venous congestion COMPARISON: 09/08/2018. FINDINGS: Endotracheal tube terminates 3 cm proximal to the juan luis. The nasogastric tube terminates in the stomach. LUNGS: The lungs are well inflated. There is interval improved aeration in the lower lobes. PLEURA: No pleural effusions or pneumothorax. CARDIOVASCULAR: Persistent mild cardiomegaly with prominent central vasculature. No aortic atherosclerotic calcifications present. OSSEOUS STRUCTURES: Within normal limits for the patient's age. VISUALIZED UPPER ABDOMEN: Normal. OTHER FINDINGS: None. IMPRESSION: Stable position of endotracheal and nasogastric tubes. Improved aeration in the lower lobes.
[2018-09-09] MEDS: Piperacill/Tazo 3.375gm in Dex 3.375 GM/50 ML BAG IVPB SCH ×3 (08:35→20:00)
--- NOTE | 2018-09-09 08:41 | CP.CCUPN ---
CCU Subjective - Physician Review Events Since Last Encounter (Free Text): 09/09/18 08:41 Patient is very young man is at bedside admitted to the hospital with acute hypercapnic respiratory failure and also generalized edema. Patient was recently hospitalized at [facility] with a similar problems. He was hospitalized, and intubated as an emergency for acute hypercapnic respiratory failure. Patient was severely hypoxic, unclear, he underwent venous Doppler and CT angiogram showing evidence of no major pulmonary embolism. Last night the patient developed a fever and he become more tachycardic tachypneic and also hypoxic. Patient is currently on 100% FiO2 The PEEP of 10. He is sedated heavily at this time. Making good urine output He is also receiving Lasix for suspected venous congestion. Patient started on IV antibiotic. On examination: Patient is currently sedated. Following simple commands. Currently full support ventilation Chest bilateral wheezing minimally noted Heart sounds are regular Abdominal tenderness negative. Pedal edema noted. There is redness in the lower extremities noted. Also patient has some redness and edema in the lower abdomen. Stephens catheter noted Labs: WBC elevated 16.2 with neutrophilia Blood gas analysis severe hypoxia noted chemistry BUN and creatinine is patient has a cannabis positive in the urine toxicology Chest x-ray atelectatic changes in the lung coleman noted CT scan of the chest did not show any major pneumonia atelectatic the basal lung coleman noted no PE Assessment and recommendation: 37-year-old male extremely obese, history of sleep apnea but never treated recent acute respiratory failure in the hospital intubated and extubated now admitted again with acute respiratory insufficiency hypercapnic. Associated with now having fever and a white count. Patient will be started on treatment for acute nosocomial pneumonia. Patient will receive antibiotic we will start the patient on Zosyn and vancomycin. Will hold off the Lasix, will start slow IV fluid. Patient is at high risk for worsening oxygenation. Monitor the oxygen saturation. I spoke with the patient's in detail. Patient might need paralyzes high PEEP if needed. We will also start the patient on Solu-Medrol, DVT prophylaxis PPI. Overall prognosis is guarded but condition is very critical. After this CCU Objective - Vital Signs / Intake & Output Vital Signs (Last 4 hours): Vital Signs Pulse Resp BP Pulse Ox 09/09/18 07:00 116 H 20 139/78 92 L 09/09/18 06:00 120 H 20 121/66 94 L 09/09/18 05:40 117 H 23 107/86 90 L 09/09/18 05:00 116 H 20 125/63 90 L Intake and Output (Last 8hrs): Intake & Output 09/08/18 09/09/18 09/09/18 22:59 06:59 14:59 Intake Total 405.6 505.6 25.7 Output Total 450 600 Balance -44.4 -94.4 25.7 Weight 302 lb 7.587 oz Intake: IV 200 200 Intake, IV Amount 205.6 305.6 25.7 Left Forearm 100 Left Hand 205.6 205.6 25.7 Output: Urine 450 600 Urethral (Stephens) 450 600 - Physical Exam Head: Positive for: Atraumatic, Normocephalic Pupils: Positive for: PERRL Mouth: Positive for: Moist Mucous Membranes Respiratory/Chest: Positive for: Rales Cardiovascular: Positive for: Normal S1, S2, Tachycardic Abdomen: Positive for: Distention, Normal Bowel Sounds. Negative for: Tenderness Upper Extremity: Positive for: Normal Inspection Lower Extremity: Positive for: Edema - Medications Active Medications: Active Medications Generic Name Dose Route Start Last Admin Trade Name Freq PRN Reason Stop Dose Admin Albuterol/Ipratropium 3 ml 09/08/18 12:00 09/09/18 07:28 Duoneb 3 Mg/0.5 Mg (3 Ml) Ud INH 3 ml RQ4 ANGELA Administration Budesonide 0.5 mg 09/08/18 20:00 09/09/18 07:28 Pulmicort Respules INH 0.5 mg RQ12 ANGELA Administration Enoxaparin Sodium 40 mg 09/08/18 12:15 09/08/18 13:10 Lovenox SC 40 mg DAILY ANGELA Administration Propofol 1,000 mg in 100 mls @ 4.286 mls/hr 09/07/18 23:30 09/09/18 06:04 Diprivan IV 30 mcg/kg/min .[id number] PRN 25.719 mls/hr TITRATE PER MD ORDER Administration Protocol 5 MCG/KG/MIN Piperacillin Sod/Tazobactam Sod 3.375 gm in 50 mls @ 100 mls/hr 09/09/18 08:00 09/09/18 08:35 Zosyn 3.375 Gm Iv Premix IVPB 100 mls/hr Q6H ANGELA Administration Protocol Sodium Chloride 1,000 mls @ 75 mls/hr 09/09/18 08:00 09/09/18 08:35 Sodium Chloride 0.9% IV 75 mls/hr .[id number] ANGELA Administration Vancomycin/Sodium Chloride 1 gm in 200 mls @ 133 mls/hr 09/09/18 08:00 Vancomycin 1 Gm/Ns 200 Ml IVPB 09/14/18 08:01 Q12H [facility] Protocol Lorazepam 2 mg 09/09/18 08:03 Ativan IVP Q4H PRN Agitation Methylprednisolone 40 mg 09/09/18 10:00 Solu-Medrol IVP Q12 ANGELA Pantoprazole Sodium 40 mg 09/09/18 10:00 Protonix Inj IVP DAILY [facility] - Patient Studies Lab Studies: Microbiology Studies 09/08/18 06:17 Blood Culture - Preliminary Blood-Venous NO GROWTH AFTER 24 HOURS 09/08/18 06:16 Blood Culture - Preliminary Blood-Venous NO GROWTH AFTER 24 HOURS Lab Studies 09/09/18 09/09/18 09/09/18 Range/Units 05:55 04:50 04:50 WBC 16.2 H (4.8-10.8) K/uL RBC 5.55 (4.40-5.90) Mil/uL Hgb 14.9 (12.0-18.0) g/dL Hct 46.9 (35.0-51.0) % MCV 84.6 (80.0-94.0) fL MCH 26.8 L (27.0-31.0) pg MCHC 31.7 L (33.0-37.0) g/dL RDW 15.7 H (11.5-14.5) % Plt Count 226 (130-400) K/uL MPV 7.7 (7.2-11.7) fL Neut % (Auto) 78.8 H (50.0-75.0) % Lymph % (Auto) 8.9 L (20.0-40.0) % Wharton % (Auto) 11.6 H (0.0-10.0) % Eos % (Auto) 0.2 (0.0-4.0) % Baso % (Auto) 0.5 (0.0-2.0) % Neut # (Auto) 12.8 H (1.8-7.0) K/uL Lymph # (Auto) 1.4 (1.0-4.3) K/uL Wharton # (Auto) 1.9 H (0.0-0.8) K/uL Eos # (Auto) 0.0 (0.0-0.7) K/uL Baso # (Auto) 0.1 (0.0-0.2) K/uL Neutrophils % (Manual) 78 H (50-75) % Lymphocytes % (Manual) 10 L (20-40) % Reactive Lymphs % 2 H (0-0) % Monocytes % (Manual) 10 (0-10) % Platelet Estimate Normal (NORMAL) Polychromasia Slight Anisocytosis (manual) Slight Macrocytosis (manual) Slight Puncture Site Rradial pCO2 50 H (35-45) mm/Hg pO2 61 L (80-100) mm/Hg HCO3 32.0 H (21-28) mmol/L ABG pH 7.45 (7.35-7.45) ABG Total CO2 36.3 H (22-28) mmol/L ABG O2 Saturation 95.7 (95-98) % ABG Base Excess 9.2 H (-2.0-3.0) mmol/L ABG Hemoglobin (11.7-17.4) g/dL ABG Carboxyhemoglobin (0.5-1.5) % POC ABG HHb (Measured) (0.0-5.0) % ABG Methemoglobin (0.0-3.0) % Edward Test Pos ABG Potassium 3.7 (3.6-5.2) mmol/L A-a O2 Difference 590.0 mm/Hg Respiratory Index 9.7 Hgb O2 Saturation (95.0-98.0) % Glucose 113 H (75-110) mg/dl Lactate 2.2 H (0.7-2.1) mmol/L Vent Mode Prvc Mechanical Rate 20 FiO2 100.0 % Tidal Volume 500 PEEP 10 Sodium 140.0 137 (132-148) mmol/L Potassium 3.8 (3.6-5.2) mmol/L Chloride 101.0 99 (98-107) mmol/L Carbon Dioxide 33 H (22-30) mmol/L Anion Gap 9 L (10-20) BUN 15 (9-20) mg/dL Creatinine 0.8 (0.8-1.5) mg/dL Est GFR ( Amer) > 60 Est GFR (Non-Af Amer) > 60 Random Glucose 112 H (75-110) mg/dL Calcium 8.3 L (8.6-10.4) mg/dl Phosphorus 3.4 (2.5-4.5) mg/dL Magnesium 1.8 (1.6-2.3) mg/dL Total Bilirubin 0.5 (0.2-1.3) mg/dL AST 18 (17-59) U/L ALT 7 L D (21-72) U/L Alkaline Phosphatase 65 (38-126) U/L Troponin I (0.00-0.120) ng/mL Total Protein 6.9 (6.3-8.3) g/dL Albumin 3.7 (3.5-5.0) g/dL Globulin 3.2 (2.2-3.9) gm/dL Albumin/Globulin Ratio 1.2 (1.0-2.1) Arterial Blood Potassium 3.7 (3.6-5.2) mmol/L 09/08/18 09/08/18 Range/Units 14:04 10:03 WBC (4.8-10.8) K/uL RBC (4.40-5.90) Mil/uL Hgb (12.0-18.0) g/dL Hct (35.0-51.0) % MCV (80.0-94.0) fL MCH (27.0-31.0) pg MCHC (33.0-37.0) g/dL RDW (11.5-14.5) % Plt Count (130-400) K/uL MPV (7.2-11.7) fL Neut % (Auto) (50.0-75.0) % Lymph % (Auto) (20.0-40.0) % Wharton % (Auto) (0.0-10.0) % Eos % (Auto) (0.0-4.0) % Baso % (Auto) (0.0-2.0) % Neut # (Auto) (1.8-7.0) K/uL Lymph # (Auto) (1.0-4.3) K/uL Wharton # (Auto) (0.0-0.8) K/uL Eos # (Auto) (0.0-0.7) K/uL Baso # (Auto) (0.0-0.2) K/uL Neutrophils % (Manual) (50-75) % Lymphocytes % (Manual) (20-40) % Reactive Lymphs % (0-0) % Monocytes % (Manual) (0-10) % Platelet Estimate (NORMAL) Polychromasia Anisocytosis (manual) Macrocytosis (manual) Puncture Site R/rad pCO2 48 H (35-45) mm/Hg pO2 86 (80-100) mm/Hg HCO3 27.9 (21-28) mmol/L ABG pH 7.40 (7.35-7.45) ABG Total CO2 31.2 H (22-28) mmol/L ABG O2 Saturation 98.9 H (95-98) % ABG Base Excess 3.9 H (-2.0-3.0) mmol/L ABG Hemoglobin 14.6 (11.7-17.4) g/dL ABG Carboxyhemoglobin 1.5 (0.5-1.5) % POC ABG HHb (Measured) 1.1 (0.0-5.0) % ABG Methemoglobin 1.0 (0.0-3.0) % Edward Test Pos ABG Potassium (3.6-5.2) mmol/L A-a O2 Difference 567.0 mm/Hg Respiratory Index 6.6 Hgb O2 Saturation 96.4 (95.0-98.0) % Glucose (75-110) mg/dl Lactate (0.7-2.1) mmol/L Vent Mode Mechanical Rate 20 FiO2 100.0 % Tidal Volume 500 PEEP 10 Sodium (132-148) mmol/L Potassium (3.6-5.2) mmol/L Chloride (98-107) mmol/L Carbon Dioxide (22-30) mmol/L Anion Gap (10-20) BUN (9-20) mg/dL Creatinine (0.8-1.5) mg/dL Est GFR ( Amer) Est GFR (Non-Af Amer) Random Glucose (75-110) mg/dL Calcium (8.6-10.4) mg/dl Phosphorus (2.5-4.5) mg/dL Magnesium (1.6-2.3) mg/dL Total Bilirubin (0.2-1.3) mg/dL AST (17-59) U/L ALT (21-72) U/L Alkaline Phosphatase (38-126) U/L Troponin I < 0.0120 (0.00-0.120) ng/mL Total Protein (6.3-8.3) g/dL Albumin (3.5-5.0) g/dL Globulin (2.2-3.9) gm/dL Albumin/Globulin Ratio (1.0-2.1) Arterial Blood Potassium (3.6-5.2) mmol/L Laboratory Results - last 24 hr 09/08/18 09/08/18 09/09/18 10:03 14:04 04:50 WBC 16.2 H RBC 5.55 Hgb 14.9 Hct 46.9 MCV 84.6 MCH 26.8 L MCHC 31.7 L RDW 15.7 H Plt Count 226 MPV 7.7 Neut % (Auto) 78.8 H Lymph % (Auto) 8.9 L Wharton % (Auto) 11.6 H Eos % (Auto) 0.2 Baso % (Auto) 0.5 Neut # (Auto) 12.8 H Lymph # (Auto) 1.4 Wharton # (Auto) 1.9 H Eos # (Auto) 0.0 Baso # (Auto) 0.1 Neutrophils % (Manual) 78 H Lymphocytes % (Manual) 10 L Reactive Lymphs % 2 H Monocytes % (Manual) 10 Platelet Estimate Normal Polychromasia Slight Anisocytosis (manual) Slight Macrocytosis (manual) Slight Puncture Site R/rad pCO2 48 H pO2 86 HCO3 27.9 ABG pH 7.40 ABG Total CO2 31.2 H ABG O2 Saturation 98.9 H ABG Base Excess 3.9 H ABG Hemoglobin 14.6 ABG Carboxyhemoglobin 1.5 POC ABG HHb (Measured) 1.1 ABG Methemoglobin 1.0 Edward Test Pos ABG Potassium A-a O2 Difference 567.0 Respiratory Index 6.6 Hgb O2 Saturation 96.4 Glucose Lactate Vent Mode Mechanical Rate 20 FiO2 100.0 Tidal Volume 500 PEEP 10 Sodium Potassium Chloride Carbon Dioxide Anion Gap BUN Creatinine Est GFR ( Amer) Est GFR (Non-Af Amer) Random Glucose Calcium Phosphorus Magnesium Total Bilirubin AST ALT Alkaline Phosphatase Troponin I < 0.0120 Total Protein Albumin Globulin Albumin/Globulin Ratio Arterial Blood Potassium 09/09/18 09/09/18 04:50 05:55 WBC RBC Hgb Hct MCV MCH MCHC RDW Plt Count MPV Neut % (Auto) Lymph % (Auto) Wharton % (Auto) Eos % (Auto) Baso % (Auto) Neut # (Auto) Lymph # (Auto) Wharton # (Auto) Eos # (Auto) Baso # (Auto) Neutrophils % (Manual) Lymphocytes % (Manual) Reactive Lymphs % Monocytes % (Manual) Platelet Estimate Polychromasia Anisocytosis (manual) Macrocytosis (manual) Puncture Site Rradial pCO2 50 H pO2 61 L HCO3 32.0 H ABG pH 7.45 ABG Total CO2 36.3 H ABG O2 Saturation 95.7 ABG Base Excess 9.2 H ABG Hemoglobin ABG Carboxyhemoglobin POC ABG HHb (Measured) ABG Methemoglobin Edward Test Pos ABG Potassium 3.7 A-a O2 Difference 590.0 Respiratory Index 9.7 Hgb O2 Saturation Glucose 113 H Lactate 2.2 H Vent Mode Prvc Mechanical Rate 20 FiO2 100.0 Tidal Volume 500 PEEP 10 Sodium 137 140.0 Potassium 3.8 Chloride 99 101.0 Carbon Dioxide 33 H Anion Gap 9 L BUN 15 Creatinine 0.8 Est GFR ( Amer) > 60 Est GFR (Non-Af Amer) > 60 Random Glucose 112 H Calcium 8.3 L Phosphorus 3.4 Magnesium 1.8 Total Bilirubin 0.5 AST 18 ALT 7 L D Alkaline Phosphatase 65 Troponin I Total Protein 6.9 Albumin 3.7 Globulin 3.2 Albumin/Globulin Ratio 1.2 Arterial Blood Potassium 3.7 Radiology Impressions: Radiology Impressions Chest X-Ray 09/07/18 22:54 IMPRESSION: 1. Endotracheal tube is low in position and terminates 9 mm proximal to the juan luis. 2. Moderate cardiomegaly and mild pulmonary venous congestion. Multifocal linear atelectasis in the lungs. Chest X-Ray 09/08/18 05:00 IMPRESSION: Endotracheal tube terminates 3 cm proximal to the juan luis. Nasogastric tube terminates in the stomach. Little interval change in pulmonary venous congestion and multifocal linear atelectasis in the lungs. Persistent moderate cardiomegaly with prominent central vasculature. Chest CT 09/08/18 07:07 IMPRESSION: No CTA evidence for acute pulmonary embolism. Confluent airspace disease in both lower lobes which may represent atelectasis/pneumonia, aspiration pneumonitis is a consideration. Clinical follow-up is advised. Endotracheal tube terminates 2 cm proximal to the juan luis. The nasogastric tube terminates in the stomach. Chest X-Ray 09/09/18 04:00 IMPRESSION: Stable position of endotracheal and nasogastric tubes. Improved aeration in the lower lobes. Critical Care Progress Note - Nutrition Nutrition: Nutrition Category Date Time Status NPO Diet [DIET] Diets 09/07/18 Dinner Active
[2018-09-09] MEDS: Enoxaparin 40 mg Syringe SC SCH (09:23)
[2018-09-09] MEDS: MethylPREDNISolone 40 mg Vial IVP SCH ×2 (09:23→22:00)
[2018-09-09] MEDS: Vancomycin 1 gm/NS 200 ml 1 GM/200 ML BAG IVPB SCH ×2 (09:24→20:35)
--- NOTE | 2018-09-09 09:28 | US ---
Date of service: 09/09/2018 HISTORY: r/o congestive hepatopathy COMPARISON: None. TECHNIQUE: Sonographic evaluation of the abdomen. Grayscale imaging was performed. FINDINGS: LIVER: Measures 19.7 cm. There is diffuse increased echogenicity of the liver parenchyma. No mass. No intrahepatic bile duct dilatation. GALLBLADDER: There are no gallstones, wall thickening or pericholecystic fluid. The sonographic Nolasco's sign is negative. COMMON BILE DUCT: Measures 4.0 mm. No stones. No dilatation. PANCREAS: Unremarkable as visualized. No mass. No ductal dilatation. RIGHT KIDNEY: Measures 10.5cm. Normal echogenicity. No calculus, mass, or hydronephrosis. LEFT KIDNEY: Measures 10.7cm. Normal echogenicity. No calculus, mass, or hydronephrosis. SPLEEN: Not well-visualized. AORTA: No aneurysmal dilatation. IVC: Unremarkable. OTHER FINDINGS: None. IMPRESSION: Mild hepatomegaly and hepatic steatosis. No cholelithiasis or biliary dilatation.
--- NOTE | 2018-09-09 22:32 | HP ---
CHIEF COMPLAINT: Dyspnea and shortness of breath. HISTORY OF PRESENT ILLNESS: This is a 37-year-old male, morbidly obese, who is seeing Pulmonology for sleep study and due to insurance approval awaiting, the patient has not been able to get sleep study. The patient decides and his is sole source of information. According to her, he has been attempting to get sleep study). He was admitted in ICU in [facility] back in July when he could not stay awake and he was found to have high level of carbon dioxide in the blood and he was found to be in respiratory failure from morbid sleep apnea and he was intubated and later on extubated and then, he was supposed to get sleep study and the BiPAP machine. Due to insurance issues, he could not get it done. On the day of admission, he developed drowsiness, weakness, dizziness, inability to keep or stand up. His called ambulance, the patient was brought into the emergency room and he was found to be in respiratory failure and he was admitted there. There is no history of cough, sore throat, cough, runny nose. There is no history of chest pain, wheezing, dyspnea on exertion, orthopnea or PND. The patient has been attempting to lose weight and he also has been attempting to get sleep study. He denies any history of chest pain. He denies any history of cough, sputum production. There is no history of joint pain or neck pain. There is no history of skin rash. There is no history of polyuria, polydipsia, or polyphagia. There is no history of hematuria or pyuria. There is no history of sneezing, itchy eyes or itchy nose. PAST MEDICA HISTORY: Morbid obesity, awaiting workup for sleep apnea/obesity. SOCIAL HISTORY: There is no history of smoking or drinking, but he uses marijuana. FAMILY HISTORY: Noncontributory. PHYSICAL EXAMINATION: GENERAL: He is a young male, in no distress. VITAL SIGNS: Blood pressure is 128/71, pulse 128, respiratory rate 24 and temperature 98. SKIN: No rashes. No bruises. No purpura. No petechiae. HEENT: Atraumatic, normocephalic. Orally intubated. Poor oral hygiene. NECK: Supple. No JVD. No lymph node. No thyromegaly. No carotid bruits. CHEST WALL: Bilateral symmetrical expansion. No tenderness. No deformity. LUNGS: Bilaterally decreased air entry. No rales. No rhonchi. Transmitted breath sounds from endotracheal tube. ABDOMEN: Soft, nontender. Bowel sounds are positive. CARDIOVASCULAR SYSTEM: S1 and S2 regular. ABDOMEN AND PELVIC: Cannot be performed. EXTREMITIES: +2 nonpitting edema. CENTRAL NERVOUS SYSTEM: The patient is sedated. ASSESSMENT: 1. Acute hypercarbic respiratory failure due to severe sleep apnea. 2. Morbid obesity. 3. Hypertension with sleep apnea. 4. Drug abuse in the form of marijuana. PLAN: Admit. Mechanical ventilator. Monitor the patient. Femi Casper MD
--- NOTE | 2018-09-09 23:19 | CP.PCM.PN ---
Subjective - Date & Time of Evaluation Date of Evaluation: 09/09/18 Time of Evaluation: 17:20 - Subjective Subjective: Patient seen and evaluated feels improved in terms of breathing Review Of Systems Review Of Systems: ROS cannot be obtained secondary to pt's inabilty to answer questions. Physical Exam - Physical Exam Additional Physical Exam Comments: gen drowsy, falling asleep constantly head nc/at eyes perrl ent mmm neck supple chest no tenderness cv tachycardic lungs cta b/l abd soft, nt back no cva tenderness skin no rash neuro somnolent extremities bilateral pitting edema CXR FINDINGS: LUNGS: The lungs are well inflated and clear. There is mild pulmonary venous congestion. PLEURA: No pleural effusions or pneumothorax. CARDIOVASCULAR: Moderate cardiomegaly and prominent central vasculature. No aortic atherosclerotic calcifications present. OSSEOUS STRUCTURES: Within normal limits for the patient's age. VISUALIZED UPPER ABDOMEN: Normal. OTHER FINDINGS: None. Objective - Vital Signs/Intake and Output Vital Signs (last 24 hours): Temp Pulse Resp BP Pulse Ox 99.7 F H 115 H 22 114/57 L 92 L 09/09/18 20:00 09/09/18 22:00 09/09/18 22:00 09/09/18 22:00 09/09/18 21:00 Intake and Output: 09/09/18 09/10/18 18:59 06:59 Intake Total 1070.6 550 Output Total 2150 175 Balance -1079.4 375 - Medications Medications: Current Medications Albuterol/Ipratropium (Duoneb 3 Mg/0.5 Mg (3 Ml) Ud) 3 ml INH RQ4 ANGELA Last Admin: 09/09/18 20:07 Dose: 3 ml Budesonide (Pulmicort Respules) 0.5 mg INH RQ12 ANGELA Last Admin: 09/09/18 20:07 Dose: 0.5 mg Enoxaparin Sodium (Lovenox) 40 mg SC DAILY ANGELA Last Admin: 09/09/18 09:23 Dose: 40 mg Furosemide (Lasix) 40 mg IVP DAILY [facility] Propofol (Diprivan) 1,000 mg in 100 mls @ 4.286 mls/hr IV .[id number] PRN; Rosana col PRN Reason: TITRATE PER MD ORDER Last Admin: 09/09/18 20:32 Dose: 34.99 mcg/kg/min, 30 mls/hr Piperacillin Sod/Tazobactam Sod (Zosyn 3.375 Gm Iv Premix) 3.375 gm in 50 mls @ 100 mls/hr IVPB Q6H ANGELA; Protocol Last Admin: 09/09/18 20:00 Dose: 100 mls/hr Vancomycin/Sodium Chloride (Vancomycin 1 Gm/Ns 200 Ml) 1 gm in 200 mls @ 133 mls/hr IVPB Q12H ANGELA; Protocol Stop: 09/14/18 08:01 Last Admin: 09/09/18 20:35 Dose: 133 mls/hr Lorazepam (Ativan) 2 mg IVP Q4H PRN PRN Reason: Agitation Last Admin: 09/09/18 17:43 Dose: 2 mg Methylprednisolone (Solu-Medrol) 40 mg IVP Q12 ANGELA Last Admin: 09/09/18 09:23 Dose: 40 mg Pantoprazole Sodium (Protonix Inj) 40 mg IVP DAILY ANGELA Last Admin: 09/09/18 09:23 Dose: 40 mg - Labs Labs: 09/09/18 04:50 09/09/18 04:50 PT 12.8 SECONDS (9.7-12.2) H 09/08/18 00:54 INR 1.2 09/08/18 00:54 APTT 34 SECONDS (21-34) 09/08/18 00:54 Assessment and Plan - Assessment and Plan (Free Text) Assessment: 37 M admitted for respiratory failure Intubated B/L pedal edema Pro BNP normal Trops normal ECHO to be done tomorrow Continue IV Lasix as needed
--- NOTE | 2018-09-10 00:03 | CP.PCM.PN ---
Subjective - Date & Time of Evaluation Date of Evaluation: 09/09/18 Time of Evaluation: 09:20 - Subjective Subjective: dcit Objective - Vital Signs/Intake and Output Vital Signs (last 24 hours): Temp Pulse Resp BP Pulse Ox 99.7 F H 115 H 22 113/57 L 92 L 09/09/18 20:00 09/09/18 22:00 09/09/18 22:00 09/09/18 23:00 09/09/18 21:00 Intake and Output: 09/09/18 09/10/18 18:59 06:59 Intake Total 1070.6 700 Output Total 2150 265 Balance -1079.4 435 - Medications Medications: Current Medications Albuterol/Ipratropium (Duoneb 3 Mg/0.5 Mg (3 Ml) Ud) 3 ml INH RQ4 ANGELA Last Admin: 09/09/18 20:07 Dose: 3 ml Budesonide (Pulmicort Respules) 0.5 mg INH RQ12 ANGELA Last Admin: 09/09/18 20:07 Dose: 0.5 mg Enoxaparin Sodium (Lovenox) 40 mg SC DAILY ANGELA Last Admin: 09/09/18 09:23 Dose: 40 mg Furosemide (Lasix) 40 mg IVP DAILY ANGELA Propofol (Diprivan) 1,000 mg in 100 mls @ 4.286 mls/hr IV .[id number] PRN; Protocol PRN Reason: TITRATE PER MD ORDER Last Admin: 09/09/18 23:51 Dose: 34.99 mcg/kg/min, 30 mls/hr Piperacillin Sod/Tazobactam Sod (Zosyn 3.375 Gm Iv Premix) 3.375 gm in 50 mls @ 100 mls/hr IVPB Q6H ANGELA; Protocol Last Admin: 09/09/18 20:00 Dose: 100 mls/hr Vancomycin/Sodium Chloride (Vancomycin 1 Gm/Ns 200 Ml) 1 gm in 200 mls @ 133 mls/hr IVPB Q12H ANGELA; Protocol Stop: 09/14/18 08:01 Last Admin: 09/09/18 20:35 Dose: 133 mls/hr Lorazepam (Ativan) 2 mg IVP Q4H PRN PRN Reason: Agitation Last Admin: 09/09/18 17:43 Dose: 2 mg Methylprednisolone (Solu-Medrol) 40 mg IVP Q12 [facility] Last Admin: 09/09/18 22:00 Dose: 40 mg Pantoprazole Sodium (Protonix Inj) 40 mg IVP DAILY [facility] Last Admin: 09/09/18 09:23 Dose: 40 mg - Labs Labs: 09/09/18 04:50 09/09/18 04:50 PT 12.8 SECONDS (9.7-12.2) H 09/08/18 00:54 INR 1.2 09/08/18 00:54 APTT 34 SECONDS (21-34) 09/08/18 00:54
[2018-09-10] MEDS: Albuterol-Ipratrop 3 mg / 0.5 (3 ml) UD INH SCH ×5 (00:42→15:39)
[2018-09-10] MEDS: Piperacill/Tazo 3.375gm in Dex 3.375 GM/50 ML BAG IVPB SCH ×3 (02:00→14:00)
[2018-09-10] MEDS: Propofol 10 mg/ml 1,000 MG/100 ML VIAL IV PRN ×6 (03:19→19:26)
--- NOTE | 2018-09-10 05:06 | PN ---
DATE: 09/09/2018 SUBJECTIVE: The patient is afebrile. No distress. No nausea or vomiting. PHYSICAL EXAMINATION: GENERAL: Blood pressure 113/57, pulse 115, respiratory rate 22, temperature 98. LUNGS: Bilaterally decreased air entry. CARDIOVASCULAR SYSTEM: S1 and S2, regular. ABDOMEN: Soft and nontender. Bowel sounds are positive. ASSESSMENT: 1. Respiratory failure due to CO2 retention due to sleep apnea. 2. Morbid obesity. PLAN: Continue to monitor patient. Femi Casper MD
[2018-09-10 06:03] LABS: ABG ALLEN TEST POS; ARTERIAL BLOOD GAS HCO3 27.3 mmol/L (21-28); ARTERIAL BLOOD GAS O2 SAT 90.8 % (95-98); ARTERIAL BLOOD GAS PCO2 41 mm/Hg (35-45); ARTERIAL BLOOD GAS PH 7.44 (7.35-7.45); ARTERIAL BLOOD GAS PO2 53 mm/Hg (80-100); ARTERIAL BLOOD GAS TCO2 29.1 mmol/L (22-28)
[2018-09-10 06:26] LABS: BASO # 0.1 K/uL (0.0-0.2); BASO % 0.4 % (0.0-2.0); EOS # 0.1 K/uL (0.0-0.7); EOS % 0.7 % (0.0-4.0); HEMOGLOBIN 14.5 g/dL (12.0-18.0); LYMPH # 0.6 K/uL (1.0-4.3); LYMPH % 3.7 % (20.0-40.0); MEAN CELL VOLUME 85.4 fL (80.0-94.0); MEAN CORPUSCULAR HEMOGLOBIN 27.1 pg (27.0-31.0); MEAN CORPUSCULAR HGB CONC 31.7 g/dL (33.0-37.0); MEAN PLATELET VOLUME 8.2 fL (7.2-11.7); MONO # 0.9 K/uL (0.0-0.8); MONO % 5.7 % (0.0-10.0); NEUT # 13.7 K/uL (1.8-7.0); NEUT % 89.5 % (50.0-75.0); PLATELET COUNT 231 K/uL (130-400); RBC 5.37 Mil/uL (4.40-5.90); RED CELL DISTRIBUTION WIDTH 15.8 % (11.5-14.5); WHITE BLOOD COUNT 15.3 K/uL (4.8-10.8)
[2018-09-10 06:48] LABS: ALB/GLOB RATIO 1.1 (1.0-2.1); ALBUMIN 3.7 g/dL (3.5-5.0); ALT/SGPT < 6 U/L (21-72); AST/SGOT 24 U/L (17-59); BLOOD UREA NITROGEN 19 mg/dL (9-20); CALCIUM 9.1 mg/dl (8.6-10.4); GFR NON-AFRICAN AMERICAN > 60
[2018-09-10] MEDS: Budesonide 0.5 mg/2 ml Inhal Susp UD INH SCH (08:04)
[2018-09-10] MEDS: Vancomycin 1 gm/NS 200 ml 1 GM/200 ML BAG IVPB SCH (08:10)
[2018-09-10 08:42] LABS: LYMPHOCYTE 4 % (20-40); MONOCYTE 6 % (0-10); NEUTROPHIL 90 % (50-75); PLATELET ESTIMATE NORMAL (NORMAL); TOTAL CELLS COUNTED 100
--- NOTE | 2018-09-10 09:34 | RAD ---
Date of service: 09/10/2018 HISTORY: intubated COMPARISON: 09/09/2018. FINDINGS: Endotracheal tube terminates 3 cm proximal to the juan luis. The nasogastric tube terminates the stomach. LUNGS: There are low lung volumes. There is interval mild improved aeration in the lungs with residual mild pulmonary venous congestion. PLEURA: Suspect layering effusions. No pneumothorax. CARDIOVASCULAR: Persistent moderate cardiomegaly. No aortic atherosclerotic calcifications present. OSSEOUS STRUCTURES: Within normal limits for the patient's age. VISUALIZED UPPER ABDOMEN: Normal. OTHER FINDINGS: None. IMPRESSION: Interval mild improved aeration in the lungs with suspected layering pleural effusions. Stable position of endotracheal and nasogastric tubes.
[2018-09-10] MEDS: MethylPREDNISolone 40 mg Vial IVP SCH (10:02)
[2018-09-10] MEDS: Enoxaparin 40 mg Syringe SC SCH (10:03)
--- NOTE | 2018-09-10 10:06 | CARD ---
APPROVED REPORT Date of service: 09/08/2018 EKG Measurement Heart [id number] <Conclusion> Sinus tachycardia Otherwise normal ECG
--- NOTE | 2018-09-10 12:29 | VASCLAB ---
Date of service: 09/08/2018 PROCEDURE: Lower Extremity Venous Duplex Exam. HISTORY: Bilateral leg edema PRIORS: None. TECHNIQUE: Bilateral common femoral, femoral, popliteal and posterior tibial, peroneal and great saphenous veins were evaluated. Flow was assessed with color Doppler, compressibility, assessment of phasic flow and augmentation response. Report prepared by GARTH Blas FINDINGS: RIGHT: 1. Common Femoral Vein: 1.1. Compressibility - Fully compressible: Thrombus - None : Flow - Phasic: Augmentation -Normal: Reflux - None. 2. Femoral Vein: (proximal view only) 2.1. Compressibility - Fully compressible: Thrombus - None : Flow - Phasic: Augmentation -Normal: Reflux - None. 3. Popliteal Vein: 4. Posterior Tibial Vein: 5. Peroneal Vein: 6. Great Saphenous Vein: 6.1. Compressibility - Fully compressible: Thrombus - None: Flow - Phasic: Augmentation - Normal: Reflux - None. LEFT: 1. Common Femoral Vein: 1.1. Compressibility - Fully compressible: Thrombus - None: Flow - Phasic: Augmentation -Normal: Reflux - None. 2. Femoral Vein: (proximal view only) 2.1. Compressibility - Fully compressible: Thrombus - None: Flow - Phasic: Augmentation -Normal: Reflux - None. 3. Popliteal Vein: 3.1. Compressibility - Fully compressible: Thrombus - None : Flow - Phasic: Augmentation -Normal: Reflux - None. 4. Posterior Tibial Vein: 4.1. Compressibility - Fully compressible: Thrombus - None: Flow - Phasic: Augmentation -Normal: Reflux - None. 5. Peroneal Vein: 5.1. Compressibility - Fully compressible: Thrombus - None: Flow - Phasic: Augmentation -Normal: Reflux - None. 6. Great Saphenous Vein: 6.1. Compressibility - Fully compressible: Thrombus - None: Flow - Phasic: Augmentation - Normal: Reflux - None. OTHER FINDINGS: Technically limited and difficult exam, due to patient body habitus, positioning and ICU equipment interference. IMPRESSION: No evidence of deep or superficial vein thrombosis of bilateral lower extremities, as visualized.
--- NOTE | 2018-09-10 15:44 | CP.CCUPN ---
CCU Subjective - Physician Review Subjective (Free Text): PGY-1 Critical Care Progress Note for Dr. Sims Patient seen and examined. O2 sat now stable but remains in low 90s on 100% FIO2 on vent. Patient accepted to [facility] ICU transfer to receive ECMO therapy, pending bed placement. CCU Objective - Vital Signs / Intake & Output Vital Signs (Last 4 hours): Vital Signs Temp Pulse Resp BP Pulse Ox 09/10/18 13:00 115 H 22 137/68 91 L 09/10/18 12:00 98.8 F 115 H 22 118/54 L 90 L Intake and Output (Last 8hrs): Intake & Output 09/10/18 09/10/18 09/10/18 06:59 14:59 22:59 Intake Total 750 600 Output Total 475 1920 Balance 275 -1320 Weight 297 lb 2 oz Intake: IV 300 200 Intake, IV Amount 290 180 Left Forearm 50 Left Hand 240 180 Tube Feeding 160 220 Output: Urine 475 1920 Urethral (Stephens) 475 1920 Oral Regurgitation 0 Other: # Bowel Movements 0 0 - Physical Exam Head: Positive for: Atraumatic, Normocephalic Pupils: Positive for: PERRL Mouth: Positive for: Moist Mucous Membranes Respiratory/Chest: Positive for: Rales Cardiovascular: Positive for: Normal S1, S2, Tachycardic Abdomen: Positive for: Distention, Normal Bowel Sounds. Negative for: Tenderness Upper Extremity: Positive for: Normal Inspection Lower Extremity: Positive for: Edema - Medications Active Medications: Active Medications Generic Name Dose Route Start Last Admin Trade Name Freq PRN Reason Stop Dose Admin Albuterol/Ipratropium 3 ml 09/08/18 12:00 09/10/18 15:39 Duoneb 3 Mg/0.5 Mg (3 Ml) Ud INH 3 ml RQ4 ANGELA Administration Budesonide 0.5 mg 09/08/18 20:00 09/10/18 08:04 Pulmicort Respules INH 0.5 mg RQ12 ANGELA Administration Enoxaparin Sodium 40 mg 09/08/18 12:15 09/10/18 10:03 Lovenox SC 40 mg DAILY ANGELA Administration Furosemide 40 mg 09/10/18 10:00 09/10/18 10:02 Lasix IVP 40 mg DAILY ANGELA Administration Propofol 1,000 mg in 100 mls @ 4.286 mls/hr 09/07/18 23:30 09/10/18 14:37 Diprivan IV 44.79 mcg/kg/min .[id number] PRN 38.4 mls/hr TITRATE PER MD ORDER Administration Protocol 5 MCG/KG/MIN Piperacillin Sod/Tazobactam Sod 3.375 gm in 50 mls @ 100 mls/hr 09/09/18 08:00 09/10/18 08:10 Zosyn 3.375 Gm Iv Premix IVPB 100 mls/hr Q6H ANGELA Administration Protocol Vancomycin/Sodium Chloride 1 gm in 200 mls @ 133 mls/hr 09/09/18 08:00 09/10/18 08:10 Vancomycin 1 Gm/Ns 200 Ml IVPB 09/14/18 08:01 133 mls/hr Q12H ANGELA Administration Protocol Lorazepam 2 mg 09/09/18 08:03 09/10/18 05:00 Ativan IVP 2 mg Q4H PRN Administration Agitation Methylprednisolone 40 mg 09/09/18 10:00 09/10/18 10:02 Solu-Medrol IVP 40 mg Q12 ANGELA Administration Pantoprazole Sodium 40 mg 09/09/18 10:00 09/10/18 10:02 Protonix Inj IVP 40 mg DAILY ANGELA Administration - Patient Studies Lab Studies: Microbiology Studies 09/08/18 06:17 Blood Culture - Preliminary Blood-Venous NO GROWTH AFTER 48 HOURS 09/08/18 06:16 Blood Culture - Preliminary Blood-Venous NO GROWTH AFTER 48 HOURS 09/09/18 10:10 Gram Stain - Final Sputum Lab Studies 09/10/18 09/10/18 09/10/18 Range/Units 06:22 06:22 05:03 WBC 15.3 H (4.8-10.8) K/uL RBC 5.37 (4.40-5.90) Mil/uL Hgb 14.5 (12.0-18.0) g/dL Hct 45.9 (35.0-51.0) % MCV 85.4 (80.0-94.0) fL MCH 27.1 (27.0-31.0) pg MCHC 31.7 L (33.0-37.0) g/dL RDW 15.8 H (11.5-14.5) % Plt Count 231 (130-400) K/uL MPV 8.2 (7.2-11.7) fL Neut % (Auto) 89.5 H (50.0-75.0) % Lymph % (Auto) 3.7 L (20.0-40.0) % [place] % (Auto) 5.7 (0.0-10.0) % Eos % (Auto) 0.7 (0.0-4.0) % Baso % (Auto) 0.4 (0.0-2.0) % Neut # (Auto) 13.7 H (1.8-7.0) K/uL Lymph # (Auto) 0.6 L (1.0-4.3) K/uL [place] # (Auto) 0.9 H (0.0-0.8) K/uL Eos # (Auto) 0.1 (0.0-0.7) K/uL Baso # (Auto) 0.1 (0.0-0.2) K/uL Neutrophils % (Manual) 90 H (50-75) % Lymphocytes % (Manual) 4 L (20-40) % Monocytes % (Manual) 6 (0-10) % Platelet Estimate Normal (NORMAL) Puncture Site Rr pCO2 41 (35-45) mm/Hg pO2 53 L (80-100) mm/Hg HCO3 27.3 (21-28) mmol/L ABG pH 7.44 (7.35-7.45) ABG Total CO2 29.1 H (22-28) mmol/L ABG O2 Saturation 90.8 L (95-98) % ABG Base Excess 3.3 H (-2.0-3.0) mmol/L Edward Test Pos ABG Potassium 3.8 (3.6-5.2) mmol/L A-a O2 Difference 609.0 mm/Hg Respiratory Index 11.5 Sodium 138 137.0 (132-148) mmol/l Chloride 102 102.0 (98-107) mmol/L Glucose 119 H (75-110) mg/dl Lactate 2.4 H (0.7-2.1) mmol/L Vent Mode Prvc Mechanical Rate 22 FiO2 100.0 % Tidal Volume 500 PEEP 10 Potassium 4.3 (3.6-5.2) mmol/L Carbon Dioxide 28 (22-30) mmol/L Anion Gap 13 (10-20) BUN 19 (9-20) mg/dL Creatinine 0.8 (0.8-1.5) mg/dL Est GFR ( Amer) > 60 Est GFR (Non-Af Amer) > 60 Random Glucose 120 H (75-110) mg/dL Calcium 9.1 (8.6-10.4) mg/dl Phosphorus 3.5 (2.5-4.5) mg/dL Magnesium 2.0 (1.6-2.3) mg/dL Total Bilirubin 0.5 (0.2-1.3) mg/dL AST 24 (17-59) U/L ALT < 6 L (21-72) U/L Alkaline Phosphatase 59 (38-126) U/L Total Protein 7.1 (6.3-8.3) g/dL Albumin 3.7 (3.5-5.0) g/dL Globulin 3.4 (2.2-3.9) gm/dL Albumin/Globulin Ratio 1.1 (1.0-2.1) Arterial Blood Potassium 3.8 (3.6-5.2) mmol/L Laboratory Results - last 24 hr 09/10/18 09/10/18 09/10/18 05:03 06:22 06:22 WBC 15.3 H RBC 5.37 Hgb 14.5 Hct 45.9 MCV 85.4 MCH 27.1 MCHC 31.7 L RDW 15.8 H Plt Count 231 MPV 8.2 Neut % (Auto) 89.5 H Lymph % (Auto) 3.7 L [place] % (Auto) 5.7 Eos % (Auto) 0.7 Baso % (Auto) 0.4 Neut # (Auto) 13.7 H Lymph # (Auto) 0.6 L [place] # (Auto) 0.9 H Eos # (Auto) 0.1 Baso # (Auto) 0.1 Neutrophils % (Manual) 90 H Lymphocytes % (Manual) 4 L Monocytes % (Manual) 6 Platelet Estimate Normal Puncture Site Rr pCO2 41 pO2 53 L HCO3 27.3 ABG pH 7.44 ABG Total CO2 29.1 H ABG O2 Saturation 90.8 L ABG Base Excess 3.3 H Edward Test Pos ABG Potassium 3.8 A-a O2 Difference 609.0 Respiratory Index 11.5 Sodium 137.0 138 Chloride 102.0 102 Glucose 119 H Lactate 2.4 H Vent Mode Prvc Mechanical Rate 22 FiO2 100.0 Tidal Volume 500 PEEP 10 Potassium 4.3 Carbon Dioxide 28 Anion Gap 13 BUN 19 Creatinine 0.8 Est GFR ( Amer) > 60 Est GFR (Non-Af Amer) > 60 Random Glucose 120 H Calcium 9.1 Phosphorus 3.5 Magnesium 2.0 Total Bilirubin 0.5 AST 24 ALT < 6 L Alkaline Phosphatase 59 Total Protein 7.1 Albumin 3.7 Globulin 3.4 Albumin/Globulin Ratio 1.1 Arterial Blood Potassium 3.8 Radiology Impressions: Radiology Impressions Duplex Scan Lower Extremity Artery 09/08/18 08:30 IMPRESSION: No evidence of deep or superficial vein thrombosis of bilateral lower extremities, as visualized. Chest X-Ray 09/10/18 07:00 IMPRESSION: Interval mild improved aeration in the lungs with suspected layering pleural effusions. Stable position of endotracheal and nasogastric tubes. Review of Systems - Review of Systems Systems not reviewed;Unavailable: Intubated Critical Care Progress Note - Nutrition Nutrition: Nutrition Category Date Time Status NPO Diet [DIET] Diets 09/07/18 Dinner Active Assessment/Plan - Assessment and Plan (Free Text) Assessment: Assessment and plan 37 yo M PMHx asthma, ELLEN presents with SOB, acute respiratory failure/ARDS with O2 sat in low 90s on 100 percent FIO2, accepted for transfer to [facility] for ECMO. Pulm Hypoxic/Hypercapneic Respiratory Failure -Intubated, on vent -Saturating low 90s on 100 percent FiO2 Meds -Vanc, Zosyn -Solumedrol 40 mg IV Q12 -Duoneb Q4 ANGELA -Patient accepted to [facility] for transfer in order for ECMO Cardio -Tachy 2/2 hypoxemia -Regular rhythm on tele monitor GI -GI ppx Renal -BUN/Cr WNL -Adequate urine output PPx DVT: Lovenox 40 SC daily -GI: Protonix 40 IV daily Assessment and plan d/w Dr. Bethany Denson, PGY-1
[2018-09-10 16:59] VITALS: TEMP 99.3
[2018-09-10 19:40] VITALS: BP 130/72; PULSE 113; RESP 19; O2SAT 75
--- NOTE | 2018-09-10 22:29 | CP.PCM.DIS ---
Provider - Provider Date of Admission: 09/07/18 22:49 Attending physician: Femi Casper MD Consults: 09/08/18 08:00 Case Management Referral Routine Comment: Physician Instructions: Outpatient insurance Reason For Exam: Reason for Referral: Discharge Planning Inpatient [employer] Core Measures Referral Routine Comment: Physician Instructions: Reason For Exam: SOB, Hx of PNA Nursing Referral for Wound Care Routine Comment: lower abdomen reddened Physician Instructions: Reason For Exam: bilateral leg swelling and redness 09/08/18 11:13 Cardiology Consult Routine Comment: Consulting Provider: Miah Bill Consulting Physician: Miah Bill Reason for Consult: r/o chf Time Spent in preparation of Discharge (in minutes): 30 Hospital Course - Lab Results Lab Results: Micro Results 09/08/18 06:17 Blood-Venous Blood Culture - Preliminary NO GROWTH AFTER 48 HOURS 09/08/18 06:16 Blood-Venous Blood Culture - Preliminary NO GROWTH AFTER 48 HOURS 09/09/18 10:10 Sputum Gram Stain - Final 09/08/18 06:20 Urine,Catheterized Urine Culture - Final No Growth (<1,000 CFU/ML) 09/07/18 23:29 Urine Random Urine Culture - Final No Growth (<1,000 CFU/ML) 09/08/18 06:19 Naris MRSA Culture (Admit) - Final MRSA NOT DETECTED Most Recent Lab Values WBC 15.3 K/uL (4.8-10.8) H 09/10/18 06:22 RBC 5.37 Mil/uL (4.40-5.90) 09/10/18 06:22 Hgb 14.5 g/dL (12.0-18.0) 09/10/18 06:22 Hct 45.9 % (35.0-51.0) 09/10/18 06:22 MCV 85.4 fL (80.0-94.0) 09/10/18 06:22 MCH 27.1 pg (27.0-31.0) 09/10/18 06:22 MCHC 31.7 g/dL (33.0-37.0) L 09/10/18 06:22 RDW 15.8 % (11.5-14.5) H 09/10/18 06:22 Plt Count 231 K/uL (130-400) 09/10/18 06:22 MPV 8.2 fL (7.2-11.7) 09/10/18 06:22 Neut % (Auto) 89.5 % (50.0-75.0) H 09/10/18 06:22 Lymph % (Auto) 3.7 % (20.0-40.0) L 09/10/18 06:22 [place] % (Auto) 5.7 % (0.0-10.0) 09/10/18 06:22 Eos % (Auto) 0.7 % (0.0-4.0) 09/10/18 06:22 Baso % (Auto) 0.4 % (0.0-2.0) 09/10/18 06:22 Neut # (Auto) 13.7 K/uL (1.8-7.0) H 09/10/18 06:22 Lymph # (Auto) 0.6 K/uL (1.0-4.3) L 09/10/18 06:22 [place] # (Auto) 0.9 K/uL (0.0-0.8) H 09/10/18 06:22 Eos # (Auto) 0.1 K/uL (0.0-0.7) 09/10/18 06:22 Baso # (Auto) 0.1 K/uL (0.0-0.2) 09/10/18 06:22 Neutrophils % (Manual) 90 % (50-75) H 09/10/18 06:22 Band Neutrophils % 1 % (0-2) 09/08/18 02:33 Lymphocytes % (Manual) 4 % (20-40) L 09/10/18 06:22 Reactive Lymphs % 2 % (0-0) H 09/09/18 04:50 Monocytes % (Manual) 6 % (0-10) 09/10/18 06:22 Eosinophils % (Manual) 2 % (0-4) 09/07/18 21:29 Basophils % (Manual) 1 % (0-2) 09/08/18 02:33 Platelet Estimate Normal (NORMAL) 09/10/18 06:22 Polychromasia Slight 09/09/18 04:50 Anisocytosis (manual) Slight 09/09/18 04:50 Macrocytosis (manual) Slight 09/09/18 04:50 PT 12.8 SECONDS (9.7-12.2) H 09/08/18 00:54 INR 1.2 09/08/18 00:54 APTT 34 SECONDS (21-34) 09/08/18 00:54 D-Dimer, Quantitative 466 ng/mlDDU (0-243) H 09/08/18 02:33 Puncture Site Rr 09/10/18 05:03 pCO2 41 mm/Hg (35-45) 09/10/18 05:03 pO2 53 mm/Hg (80-100) L 09/10/18 05:03 HCO3 27.3 mmol/L (21-28) 09/10/18 05:03 ABG pH 7.44 (7.35-7.45) 09/10/18 05:03 ABG Total CO2 29.1 mmol/L (22-28) H 09/10/18 05:03 ABG O2 Saturation 90.8 % (95-98) L 09/10/18 05:03 ABG Base Excess 3.3 mmol/L (-2.0-3.0) H 09/10/18 05:03 ABG Hemoglobin 14.6 g/dL (11.7-17.4) 09/08/18 14:04 ABG Carboxyhemoglobin 1.5 % (0.5-1.5) 09/08/18 14:04 POC ABG HHb (Measured) 1.1 % (0.0-5.0) 09/08/18 14:04 ABG Methemoglobin 1.0 % (0.0-3.0) 09/08/18 14:04 Edward Test Pos 09/10/18 05:03 ABG Potassium 3.8 mmol/L (3.6-5.2) 09/10/18 05:03 A-a O2 Difference 609.0 mm/Hg 09/10/18 05:03 Respiratory Index 11.5 09/10/18 05:03 Hgb O2 Saturation 96.4 % (95.0-98.0) 09/08/18 14:04 Sodium 137.0 mmol/l (132-148) 09/10/18 05:03 Chloride 102.0 mmol/L (98-107) 09/10/18 05:03 Glucose 119 mg/dl (75-110) H 09/10/18 05:03 Lactate 2.4 mmol/L (0.7-2.1) H 09/10/18 05:03 Liter Flow 2.5 09/07/18 21:15 Vent Mode Prvc 09/10/18 05:03 Mechanical Rate 22 09/10/18 05:03 FiO2 100.0 % 09/10/18 05:03 Tidal Volume 500 09/10/18 05:03 PEEP 10 09/10/18 05:03 Inspiratory BiPAP 20 09/07/18 20:15 Expiratory BiPAP 10 09/07/18 20:15 Crit Value Called To Dr hawkins 09/07/18 21:15 Crit Value Called By [facility] 09/07/18 21:15 Crit Value Read Back Y 09/07/18 21:15 Blood Gas Notified Time 211809/07/18 21:15 Sodium 138 mmol/L (132-148) 09/10/18 06:22 Potassium 4.3 mmol/L (3.6-5.2) 09/10/18 06:22 Chloride 102 mmol/L (98-107) 09/10/18 06:22 Carbon Dioxide 28 mmol/L (22-30) 09/10/18 06:22 Anion Gap 13 (10-20) 09/10/18 06:22 BUN 19 mg/dL (9-20) 09/10/18 06:22 Creatinine 0.8 mg/dL (0.8-1.5) 09/10/18 06:22 Est GFR ( Amer) > 60 09/10/18 06:22 Est GFR (Non-Af Amer) > 60 09/10/18 06:22 Random Glucose 120 mg/dL (75-110) H 09/10/18 06:22 Calcium 9.1 mg/dl (8.6-10.4) 09/10/18 06:22 Phosphorus 3.5 mg/dL (2.5-4.5) 09/10/18 06:22 Magnesium 2.0 mg/dL (1.6-2.3) 09/10/18 06:22 Total Bilirubin 0.5 mg/dL (0.2-1.3) 09/10/18 06:22 AST 24 U/L (17-59) 09/10/18 06:22 ALT < 6 U/L (21-72) L 09/10/18 06:22 Alkaline Phosphatase 59 U/L (38-126) 09/10/18 06:22 Total Creatine Kinase 129 U/L (55-170) 09/07/18 21:29 CK-MB (Mass) 1.52 ng/mL (0.0-3.38) 09/07/18 21:29 Troponin I < 0.0120 ng/mL (0.00-0.120) 09/08/18 10:03 NT-Pro-B Natriuret Pep 44.2 pg/mL (0-450) 09/07/18 21:29 Total Protein 7.1 g/dL (6.3-8.3) 09/10/18 06:22 Albumin 3.7 g/dL (3.5-5.0) 09/10/18 06:22 Globulin 3.4 gm/dL (2.2-3.9) 09/10/18 06:22 Albumin/Globulin Ratio 1.1 (1.0-2.1) 09/10/18 06:22 Arterial Blood Potassium 3.8 mmol/L (3.6-5.2) 09/10/18 05:03 Urine Color Straw (YELLOW) 09/08/18 06:20 Urine Clarity Clear (Clear) 09/08/18 06:20 Urine pH 5.0 (5.0-8.0) 09/08/18 06:20 Ur Specific [place] 1.006 (1.003-1.030) 09/08/18 06:20 Urine Protein Negative mg/dL (NEGATIVE) 09/08/18 06:20 Urine Glucose (UA) Normal mg/dL (Normal) 09/08/18 06:20 Urine Ketones Negative mg/dL (NEGATIVE) 09/08/18 06:20 Urine Blood Negative (NEGATIVE) 09/08/18 06:20 Urine Nitrate Negative (NEGATIVE) 09/08/18 06:20 Urine Bilirubin Negative (NEGATIVE) 09/08/18 06:20 Urine Urobilinogen Normal mg/dL (0.2-1.0) 09/08/18 06:20 Ur Leukocyte Esterase Neg [place]/uL (Negative) 09/08/18 06:20 Urine WBC (Auto) 1 /hpf (0-5) 09/08/18 06:20 Urine RBC (Auto) 1 /hpf (0-3) 09/08/18 06:20 Hyaline Casts 3-5 /lpf (0-2) H 09/08/18 06:20 Urine Opiates Screen Negative (NEGATIVE) 09/08/18 00:59 Urine Methadone Screen Negative (NEGATIVE) 09/08/18 00:59 Ur Barbiturates Screen Negative (NEGATIVE) 09/08/18 00:59 Ur Phencyclidine Scrn Negative (NEGATIVE) 09/08/18 00:59 Ur Amphetamines Screen Negative (NEGATIVE) 09/08/18 00:59 U Benzodiazepines Scrn Negative (NEGATIVE) 09/08/18 00:59 U Oth Cocaine Metabols Negative (NEGATIVE) 09/08/18 00:59 U Cannabinoids Screen Positive (NEGATIVE) H 09/08/18 00:59 Discharge Exam - Head Exam Head Exam: ATRAUMATIC, NORMAL INSPECTION, NORMOCEPHALIC Discharge Plan - Follow Up Plan Condition: CRITICAL Disposition: Trans to Other Acute Care Hosp
--- NOTE | 2018-09-11 21:58 | DS ---
DISCHARGE DIAGNOSES: 1. Acute respiratory failure due to obstructive airway disease. 2. Morbid obesity. 3. Severe sleep apnea syndrome. HISTORY OF PRESENT ILLNESS AND HOSPITAL COURSE: This is a 37-year-old male, morbidly obese with a history of sleep apnea. He is waiting to get a sleep study for BiPAP at home, and he developed respiratory failure and is up on mechanical ventilator. He is not doing well with mechanical ventilator. He is on FiO2 of 100%. SpO2 saturation is 90%. The patient is transferred to as per family's request. Condition is guarded. The patient will be transported with ACLS protocol. Condition upon transfer is guarded. The patient and understand the consequences. The patient will be followed up as outpatient. Femi Casper MD
== END 2018-09-10 19:47 | disposition short-term general hospital (02) | DRG 882 ==
LOC: C.ER 20:25 → C.9I 22:49
PROVIDERS: ADMIT Internal Medicine; ATTEND Internal Medicine
PROC: 5A1945Z Respiratory Ventilation, 24-96 Consecutive Hours (ICD-10-PCS; principal; 2018-09-07)
PROC: 5A09357 Assistance with Respiratory Ventilation, Less than 24 Consecutive Hours, Continuous Positive Airway Pressure (ICD-10-PCS; 2018-09-07)
PROC: 0BH17EZ Insertion of Endotracheal Airway into Trachea, Via Natural or Artificial Opening (ICD-10-PCS; 2018-09-07)
DX: J96.92 Respiratory failure, unspecified with hypercapnia (principal); J18.9 Pneumonia, unspecified organism; E87.2 Acidosis; E66.01 Morbid (severe) obesity due to excess calories; J96.91 Respiratory failure, unspecified with hypoxia; F12.10 Cannabis abuse, uncomplicated; G47.33 Obstructive sleep apnea (adult) (pediatric); I10 Essential (primary) hypertension; J45.909 Unspecified asthma, uncomplicated; Z87.891 Personal history of nicotine dependence